=== PATIENT | female | born 2000 | race Two or more races ===

== ENCOUNTER 2021-07-08 20:34 | Emergency (ER) | payer MEDICAID, SELFPAY ==
--- NOTE | ~2021-07-08 | US_ITS ---
EXAMINATION: US OB LESS THAN 14 WEEKS FETUS ADD GESTATION US PELVIC OVARIAN DOPPLER CLINICAL INFORMATION: Right-sided pelvic pain. Evaluate for an ovarian cyst, torsion, ectopic. Positive urine . COMPARISON: None TECHNIQUE: Transabdominal and transvaginal imaging was obtained. FINDINGS: The uterus is anteverted. No myometrial lesion. There is a gestational sac within the endometrium measuring 0.4 cm corresponding to a gestational age of 5 weeks 0 days and an MAURA of 03/10/2022. Unremarkable yolk sac. No pole identified. No subchorionic hemorrhage. The right ovary measures 4.2 x 2.3 x 2.5 cm. Possible right ovarian corpus luteum measuring 2.2 x 1.8 x 2.0 cm. The left ovary is sonographically unremarkable measuring 2.5 x 1.4 x 1.8 cm. Doppler detectable vascular flow seen within the right and left ovary. No pelvic free fluid. US/US OB <= 14 wk fetus add gest IMPRESSION: 1. Sonographically unremarkable intrauterine gestational sac corresponding to a gestational age of 5 weeks and 0 days and MAURA of 03/10/2022. No subchorionic hemorrhage. 2. Probable right ovarian corpus luteum measuring 2.2 cm. Doppler detectable vascular flow within the right and left ovary.
--- NOTE | ~2021-07-08 | US_ITS ---
EXAMINATION: US OB LESS THAN 14 WEEKS FETUS ADD GESTATION US PELVIC OVARIAN DOPPLER CLINICAL INFORMATION: Right-sided pelvic pain. Evaluate for an ovarian cyst, torsion, ectopic. Positive urine . COMPARISON: None TECHNIQUE: Transabdominal and transvaginal imaging was obtained. FINDINGS: The uterus is anteverted. No myometrial lesion. There is a gestational sac within the endometrium measuring 0.4 cm corresponding to a gestational age of 5 weeks 0 days and an MAURA of 03/10/2022. Unremarkable yolk sac. No pole identified. No subchorionic hemorrhage. The right ovary measures 4.2 x 2.3 x 2.5 cm. Possible right ovarian corpus luteum measuring 2.2 x 1.8 x 2.0 cm. The left ovary is sonographically unremarkable measuring 2.5 x 1.4 x 1.8 cm. Doppler detectable vascular flow seen within the right and left ovary. No pelvic free fluid. US/US pelvic ovarian doppler IMPRESSION: 1. Sonographically unremarkable intrauterine gestational sac corresponding to a gestational age of 5 weeks and 0 days and MAURA of 03/10/2022. No subchorionic hemorrhage. 2. Probable right ovarian corpus luteum measuring 2.2 cm. Doppler detectable vascular flow within the right and left ovary.
[2021-07-08 20:40] VITALS: BP 129/74; PULSE 89; RESP 17; TEMP 37; O2SAT 98; BMI 26.2
[2021-07-08 21:46] LABS: MANUAL DIFF FLAG NO
--- NOTE | 2021-07-08 21:48 | PC.NURSE ---
PT UP TO RESTROOM FOR URINE SAMPLE. PT ALERT, RESPIRATIONS EASY, N/L. SKIN W/D. PT TO U/S IN STRETCHER AT THIS TIME. PT IN NAD.
[2021-07-08 21:52] LABS: Basophils Absolute Auto 0.1 X10*3/uL (0.0-0.2); Basophils Percent Auto 0.5 % (0-2); Eosinophils Absolute Auto 0.4 X10*3/uL (0.0-0.4); Eosinophils Percent Auto 2.9 % (0-4); Hematocrit 35.6 % (37-47); Imm Gran Abs Auto 0.12 X10*3/uL (0.00-0.03); Imm Gran Pct Auto 0.9 % (0.0-0.4); Lymphocytes Absolute Auto 2.7 X10*3/uL (1.2-4.9); Lymphocytes Percent Auto 20.7 % (20-40); Mean Corpuscular HGB Conc 33.7 g/dl (31.0-35.0); Mean Corpuscular Hemoglobin 28.1 pg (27.0-33.0); Mean Corpuscular Volume 83.4 fL (80-98); Mean Platelet Volume 9.4 fL (9.4-12.3); Monocytes Percent Auto 7.4 % (2-11); Neutrophils Absolute Auto 8.8 X10*3/uL (2.0-8.3); Neutrophils Percent Auto 67.6 % (45-73); Platelet Count 333 X10*3/uL (160-400); Red Blood Count 4.27 X10*6/uL (4.20-5.50); Red Cell Distribution Width 13.2 % (11.0-16.0); White Blood Count 13.1 X10*3/uL (4.8-10.8)
[2021-07-08 21:55] LABS: Glucose Urine UA NEG (NEG); Leukocyte Esterase Urine NEG (NEG); Nitrite Urine NEG (NEG); Specific Gravity - Urine >= 1.030 (1.005-1.025); UACC Culture Trigger NO; Urine Blood TRACE (NEG); Urine Ketones NEG (NEG); Urine Protein NEG (NEG-TRACE)
[2021-07-08 21:58] LABS: Appearance Urine CLEAR; Color Urine YELLOW
[2021-07-08 22:00] LABS: UPreg QC Valid YES; Urine Pregnancy POSITIVE (NEGATIVE)
--- NOTE | 2021-07-08 22:08 | PC.NURSE ---
PT RETURNS TO ROOM ON STRETCHER.
[2021-07-08 22:09] LABS: Prothrombin Time 11.6 SEC (9.9-13.0)
[2021-07-08 22:12] LABS: Partial Thromboplastin Time 35.5 SEC (24.1-38.0)
[2021-07-08 22:15] LABS: WBC Urine 0-2 /HPF (0-4)
[2021-07-08 22:16] LABS: Bacteria Urine 1+ /LPF; Squamous Epithelial Cell Urine 1+ /LPF
[2021-07-08 22:17] LABS: Alanine Aminotransferase 13 U/L (0-31); Albumin Level 4.3 g/dL (3.5-5.0); Alkaline Phosphatase 77 U/L (39-117); Anion Gap 12 (12-20); Aspartate Amino Transferase 17 U/L (5-31); Bilirubin Total 0.4 mg/dL (0.0-1.0); Blood Urea Nitrogen 10 mg/dL (9-16); Calcium 8.9 mg/dL (8.4-10.2); Carbon Dioxide 22 mmol/L (22-29); Chloride 109 mmol/L (96-108); Creatinine Clr Calc Pharmacy 103.1; Estimated Glomerular Filt Rate > 60; Glucose Random 98 mg/dL (60-115); Sodium 139 mmol/L (135-145); Total Protein 7.1 g/dL (6.5-8.0)
[2021-07-08 22:54] VITALS: BP 118/58; PULSE 72; RESP 18; TEMP 36.9; O2SAT 97
[2021-07-08 23:02] LABS: HCG Quantitative 2068 mIU/mL
--- NOTE | 2021-07-08 23:53 | ED.PREGNANCY ---
HPI - General Chief complaint: Abdominal Pain Stated complaint: Vaginal bleeding/ ?6wks preg Time Seen by Provider: 07/08/21 20:56 Source: patient Mode of arrival: ambulatory Limitations: no limitations History of Present Illness HPI Narrative: 10-year-old female who reports she is currently about 5-6 weeks otherwise denies any past medical or surgical history she has confirmed by urine and states she had blood work through her primary care doctor, does not see an OBGYN yet. She presents today with complaint of pelvic cramping like abdominal pain and states has noted some spotting. She otherwise denies any abdominal pain, nausea, vomiting or diarrhea. Denies any dysuria, hematuria, vaginal discharge or rash. MD Complaint: abdominal pain and vaginal bleeding Onset (ago): day(s) Pain Consistency: intermittent Location: pelvis Severity: mild Quality: Aching Radiation: pelvis Relieving factors: none Exacerbating factors: none Associated symptoms: denies other symptoms Vaginal discharge: none Vaginal bleeding: none Patient : Yes OB History - Current : no complications care: none Related Data Allergies Allergy/AdvReac Type Severity Reaction Status Date / Time No Known Allergies Allergy Unverified 08/11/20 17:12 Latex Allergy Unknown Uncoded 11/22/17 00:00 Review of Systems Review of Systems: Constitutional: No Weight loss, No Fever, No Chills, No Night Sweats, No Fatigue, No Malaise ENT/Mouth: No Hearing loss, No Ear Pain, No Nasal Congestion, No Sinus Pain, No Hoarseness, No sore throat, No Rhinorrhea, No Swallowing Difficulty Eyes: No Eye Pain, No Swelling, No Redness, No Foreign Body, No Discharge, No Vision Changes Cardiovascular: No Chest Pain, No SOB, No Dyspnea on Exertion, No Orthopnea, No Edema, No Palpitations Respiratory: No Cough, No Sputum, No Wheezing, No Smoke Exposure, No Dyspnea Gastrointestinal: No Nausea, No Vomiting, No Diarrhea, No Constipation, No abdominal Pain, No Hematochezia, No Melena Genitourinary: As noted per HPI, No Dysuria, No Urinary Frequency, No Hematuria, No Urinary Incontinence, No Urgency, No Flank Pain, No Urinary Flow Changes, No Hesitancy Musculoskeletal: No joint pain, No Myalgias, No Joint Swelling Skin: No Skin Lesions, No rash Neuro: No Weakness, No Numbness, No Paresthesias, No Loss of Consciousness, No Dizziness, No Headache Psych: No Social Issues Heme/Lymph: No Bruising, No Bleeding,No Lymphadenopathy Endocrine: No Polyuria, No Polydipsia, No Temperature Intolerance [facility] Past Medical History Medical History Asthma Social History Social History Advance Directives: No Advance Directives Information Provided: Yes Patient : Yes Physical Exam Vital Signs: Vital Signs: Last Vital Signs Temp 98.5 F 07/08/21 22:54 Pulse 72 07/08/21 22:54 Resp 18 07/08/21 22:54 BP 118/58 L 07/08/21 22:54 Pulse Ox 97 07/08/21 22:54 Body Mass Index 26.2 Const: General: cooperative and healthy appearing; No acute distress or intoxicated appearing Nutritional Appearance: average body habitus Orientation/consciousness: patient oriented x3 HENMT: Head: Yes normal to inspection Ears: hearing grossly normal bilaterally Eyes: General: appearance normal, both eyes and all related structures Visual Prieto: normal visual prieto by confrontation Neck: Neck: Yes normal visual inspection, No positive Brudzinski's sign, No positive Kernig's sign and No tender Thyroid: Thyroid normal Chest: Chest palpation & inspection: normal inspection of the chest Resp: Effort & Inspection: normal respiratory effort Cardio: Jugular venous distension: no JVD Rate: regular rate Rhythm: regular rhythm Heart sounds: S1 normal heart sound present and S2 normal heart sound present GI: Inspection: Yes normal to inspection Percussion: Yes normal to percussion Auscultation: normal bowel sounds : General: Yes no CVA tenderness Back/Spine/Pelvis: Back: no CVA tenderness Skin: General skin exam: no rashes or lesions noted Neuro: General: patient oriented x3 Extrem: General: Yes normal to inspection Course Reevaluation(s) Reevaluation #1: Is not any further spotting or bleeding, hCG quant consistent Sonographically unremarkable intrauterine gestational sac corresponding to a gestational age of 5 weeks and 0 days and MAURA of 03/10/2022. No subchorionic hemorrhage. ?2. Probable right ovarian corpus luteum measuring 2.2 cm. Doppler detectable vascular flow within the right and left ovary.? She has been pain-free here. Blood type is B positive. Page placed to OBGYN to discuss case with him states she does not want a follow-up with OBGYN she would like to see or she can get an . [facility] MDM - OB/Uterine Contractions Lab Data Result diagrams: 07/08/21 21:40 07/08/21 21:40 Labs: Lab Results 07/08/21 07/08/21 07/08/21 Range/Units 21:40 21:40 21:40 WBC 13.1 H (4.8-10.8) X10*3/uL RBC 4.27 (4.20-5.50) X10*6/uL Hgb 12.0 (12.0-16.0) g/dl Hct 35.6 L (37-47) % MCV 83.4 (80-98) fL MCH 28.1 (27.0-33.0) pg MCHC 33.7 (31.0-35.0) g/dl RDW 13.2 (11.0-16.0) % Plt Count 333 (160-400) X10*3/uL MPV 9.4 (9.4-12.3) fL Immature Gran % (Auto) 0.9 H (0.0-0.4) % Neut % (Auto) 67.6 (45-73) % Lymph % (Auto) 20.7 (20-40) % [place] % (Auto) 7.4 (2-11) % Eos % (Auto) 2.9 (0-4) % Baso % (Auto) 0.5 (0-2) % Lymph # (Auto) 2.7 (1.2-4.9) X10*3/uL [place] # (Auto) 1.0 (0.1-1.2) X10*3/uL Eos # (Auto) 0.4 (0.0-0.4) X10*3/uL Baso # (Auto) 0.1 (0.0-0.2) X10*3/uL Abs Immat Gran (auto) 0.12 H (0.00-0.03) X10*3/uL Absolute Neuts (auto) 8.8 H (2.0-8.3) X10*3/uL Absolute Nucleated RBC 0.000 (0.0-0.012) X10*3/uL Nucleated RBC % (auto) 0.0 (0.0-0.2) /100WBC PT 11.6 (9.9-13.0) SEC INR 1.0 (0.9-1.1) APTT 35.5 (24.1-38.0) SEC Sodium 139 (135-145) mmol/L Potassium 4.0 (3.3-5.1) mmol/L Chloride 109 H (96-108) mmol/L Carbon Dioxide 22 (22-29) mmol/L Anion Gap 12 (12-20) BUN 10 (9-16) mg/dL Creatinine 0.68 (0.5-1.4) mg/dL Estim Creat Clear Calc 103.1 Estimated GFR > 60 Random Glucose 98 (60-115) mg/dL Calcium 8.9 (8.4-10.2) mg/dL Total Bilirubin 0.4 (0.0-1.0) mg/dL AST 17 (5-31) U/L ALT 13 (0-31) U/L Alkaline Phosphatase 77 (39-117) U/L Total Protein 7.1 (6.5-8.0) g/dL Albumin 4.3 (3.5-5.0) g/dL Beta HCG, Quant 2068 mIU/mL Urine Color Urine Appearance Urine pH (5.0-8.0) Ur Specific [place] (1.005-1.025) Urine Protein (NEG-TRACE) MG/DL Urine Glucose (UA) (NEG) MG/DL Urine Ketones (NEG) MG/DL Urine Blood (NEG) Urine Nitrite (NEG) Ur Leukocyte Esterase (NEG) Urine RBC (0) /HPF Urine WBC (0-4) /HPF Ur Squamous Epith Cells /LPF Urine Bacteria /LPF Urine Test (NEGATIVE) Blood Type 07/08/21 07/08/21 07/08/21 Range/Units 21:40 21:40 21:40 WBC (4.8-10.8) X10*3/uL RBC (4.20-5.50) X10*6/uL Hgb (12.0-16.0) g/dl Hct (37-47) % MCV (80-98) fL MCH (27.0-33.0) pg MCHC (31.0-35.0) g/dl RDW (11.0-16.0) % Plt Count (160-400) X10*3/uL MPV (9.4-12.3) fL Immature Gran % (Auto) (0.0-0.4) % Neut % (Auto) (45-73) % Lymph % (Auto) (20-40) % [place] % (Auto) (2-11) % Eos % (Auto) (0-4) % Baso % (Auto) (0-2) % Lymph # (Auto) (1.2-4.9) X10*3/uL [place] # (Auto) (0.1-1.2) X10*3/uL Eos # (Auto) (0.0-0.4) X10*3/uL Baso # (Auto) (0.0-0.2) X10*3/uL Abs Immat Gran (auto) (0.00-0.03) X10*3/uL Absolute Neuts (auto) (2.0-8.3) X10*3/uL Absolute Nucleated RBC (0.0-0.012) X10*3/uL Nucleated RBC % (auto) (0.0-0.2) /100WBC PT (9.9-13.0) SEC INR (0.9-1.1) APTT (24.1-38.0) SEC Sodium (135-145) mmol/L Potassium (3.3-5.1) mmol/L Chloride (96-108) mmol/L Carbon Dioxide (22-29) mmol/L Anion Gap (12-20) BUN (9-16) mg/dL Creatinine (0.5-1.4) mg/dL Estim Creat Clear Calc Estimated GFR Random Glucose (60-115) mg/dL Calcium (8.4-10.2) mg/dL Total Bilirubin (0.0-1.0) mg/dL AST (5-31) U/L ALT (0-31) U/L Alkaline Phosphatase (39-117) U/L Total Protein (6.5-8.0) g/dL Albumin (3.5-5.0) g/dL Beta HCG, Quant mIU/mL Urine Color YELLOW Urine Appearance CLEAR Urine pH 6.0 (5.0-8.0) Ur Specific [place] >= 1.030 H (1.005-1.025) Urine Protein NEG (NEG-TRACE) MG/DL Urine Glucose (UA) NEG (NEG) MG/DL Urine Ketones NEG (NEG) MG/DL Urine Blood TRACE (NEG) Urine Nitrite NEG (NEG) Ur Leukocyte Esterase NEG (NEG) Urine RBC 1-4 (0) /HPF Urine WBC 0-2 (0-4) /HPF Ur Squamous Epith Cells 1+ /LPF Urine Bacteria 1+ /LPF Urine Test POSITIVE H (NEGATIVE) Blood Type B Positive Discharge Plan Discharge Clinical Impression: Miscarriage, threatened, early Patient Disposition: Home, Self-Care Instructions: Threatened Miscarriage (ED) Additional Instructions: [facility] in [address], [place] [address] Opens 7:40AM Mon Referrals: ED Physician,Generic [Emergency Provider] - 2 days ([facility] )
== END 2021-07-09 00:29 | disposition home or self-care (01) ==
PROVIDERS: Nurse Practitioner Primary Care; Emergency Provider Emergency Medicine
DX: O20.0 Threatened abortion (principal); N93.9 Abnormal uterine and vaginal bleeding, unspecified; R10.9 Unspecified abdominal pain; Z3A.01 Less than 8 weeks gestation of pregnancy
CPT/HCPCS: 36415; 76801; 76802; 80053; 81001; 81025; 84702; 85025; 85610; 85730; 86900; 86901; 93975; 99283; 99284

== ENCOUNTER 2021-07-21 10:44 | Emergency (ER) | payer MEDICAID, SELFPAY ==
--- NOTE | ~2021-07-21 | US_ITS ---
EXAMINATION: US OBSTETRICAL ULTRASOUND CLINICAL INFORMATION: Early , vaginal bleeding, spotting. Pelvic and abdominal pain. COMPARISON: Obstetrical ultrasound 07/08/2021. LMP: 05/29/2021. Gestational age by maternal dates is 7 weeks 4 days. Estimated date of delivery by maternal dates is 03/05/2022. TECHNIQUE: Ultrasound of the maternal pelvis is performed using transabdominal and transvaginal transducers. Transvaginal imaging is performed due to inadequate visualization transabdominally. M-mode Doppler is also performed. FINDINGS: There is a single intrauterine gestational sac with visible yolk sac, embryo/fetus, and cardiac activity. The endometrium appears mildly thickened on some of the images but the AP cavitary dimension is only 1.5 cm on transvaginal imaging. No endometrial cystic changes. No abnormal color flow. There is no visible subchorionic hematoma or hemorrhage. HR: 117 beats per minute. CRL (crown rump length): 0.44 cm (6 weeks 1 day +/- 4 days). MAURA (estimated date of delivery): 03/15/2022 +/- 4 days. MATERNAL ADNEXA: The right maternal ovary measures 3.9 x 1.7 x 2.5 cm. There is a nearly isoechoic corpus luteum suggested within the right ovary 1.8 cm diameter, similar to previous exam. The left maternal ovary measures 2.6 x 1.7 x 1.9 cm. Normal color flow both adnexa. No torsion. No maternal adnexal mass. No maternal pelvic ascites. US/US OB pelvic and transvaginal IMPRESSION: 1. Single intrauterine gestation with cardiac activity 117 bpm. 2. Ultrasound gestational age based on crown-rump length: 6 weeks 1 day +/- 4 days. 3. Estimated date of delivery: 03/15/2022 +/- 4 days. 4. No visible subchorionic hemorrhage or hematoma. No maternal pelvic ascites.
[2021-07-21 11:03] VITALS: BP 103/53; PULSE 71; RESP 18; TEMP 36.8; O2SAT 97; BMI 28.3
[2021-07-21 11:36] VITALS: BP 111/53; TEMP 37; O2SAT 97
[2021-07-21 11:53] LABS: Urine Pregnancy POSITIVE (NEGATIVE)
[2021-07-21 11:54] LABS: UPreg QC Valid YES
--- NOTE | 2021-07-21 12:13 | ED.PREGNANCY ---
HPI - General Chief complaint: Vaginal Bleeding Stated complaint: vaginal bleeding 8 weeks Time Seen by Provider: 07/21/21 11:41 Source: patient Mode of arrival: ambulatory History of Present Illness HPI Narrative: 20-year-old female at about 7 weeks gestation presenting to the ED complaining of vaginal spotting/clots x2 days with lower abdominal/pelvic pain. Also reports low back pain, generalized fatigue and lightheadedness Denies fever, chills, nausea/vomiting, dysuria, vaginal discharge Patient denies any prior care. Of no was seen and treated in our ED on 07/08 for similar symptoms had ultrasound that showed MAURA of 03/10/2022 MD Complaint: vaginal bleeding Related Data Allergies Allergy/AdvReac Type Severity Reaction Status Date / Time Latex Allergy Unknown Hives Uncoded 07/21/21 11:02 Review of Systems Review of Systems: Constitutional: No Fever, No Chills, No Fatigue, No Malaise ENT/Mouth: No Hearing loss, No Nasal Congestion, No sore throat Eyes: No Eye Pain, No Discharge Cardiovascular: No Chest Pain, No SOB Respiratory: No Cough, No Dyspnea Gastrointestinal: No Nausea, No Vomiting, No Diarrhea, No Constipation, + Abdominal pain Genitourinary: + irregular bleeding, No Dysuria, No Hematuria Musculoskeletal: No joint pain, No Myalgias Skin: No Skin Lesions, No rash Neuro: No Weakness, No Numbness, No Paresthesias, +lightheadedness Yes all other systems are reviewed and are negative PMFSH Past Medical History Attestation statement: The following information was validated with the patient. Medical History Asthma Social History Social History Alcohol intake: former Patient Tobacco Use Status: Never used Tobacco Use of substances other than those prescribed or required for medical reasons: No Advance Directives: No Advance Directives Information Provided: No Patient : Yes Physical Exam Vital Signs: Vital Signs: Last Vital Signs Temp 98.6 F 07/21/21 11:36 Pulse 71 07/21/21 11:03 Resp 18 07/21/21 13:40 BP 111/53 L 07/21/21 11:36 Pulse Ox 97 07/21/21 11:36 Body Mass Index 28.3 Const: General: cooperative and healthy appearing Orientation/consciousness: patient oriented x3 Limitations: no limitations HENMT: Head: Yes normal to inspection Ears: hearing grossly normal bilaterally General nose exam: Normal external nose present Face and sinus: Yes normal facial exam Eyes: General: appearance normal, both eyes and all related structures EOM: EOMs intact bilaterally Neck: Neck: Yes normal visual inspection Resp: Effort & Inspection: normal respiratory effort Auscultation: clear to auscultation bilaterally, no rales and no wheezes Cardio: Rate: regular rate Heart sounds: S1 normal heart sound present and S2 normal heart sound present GI: Inspection: Yes normal to inspection Palpation (GI): Soft to palpation, Tenderness to palpation present (GI) (Lower abdominal/suprapubic tenderness), no guarding and not rigid : General: Yes no CVA tenderness Speculum Exam - Vagina: vaginal bleeding Speculum Exam - Cervix: Cervical os closed Bimanual exam- vagina & uterus: no cervical motion tenderness Bimanual Exam- Adnexa, other: tender bilaterally OB/external & speculum: Active bleeding present and vaginal bleeding; No no herpetic lesions and vaginal discharge Back/Spine/Pelvis: Back: no CVA tenderness Skin: Rashes: no rashes Wounds: no wounds Neuro: General: patient oriented x3 Gait exam (Neuro): Normal gait present Extrem: General: Yes normal to inspection Course Course Course Narrative: -no leukocytosis, H&H is stable, labs otherwise unremarkable -beta quad 3329 US OB pelvic and transvaginal IMPRESSION: 1. Single intrauterine gestation with cardiac activity 117 bpm. 2. Ultrasound gestational age based on crown-rump length:? 6 weeks 1 day +/- 4 days. 3. Estimated date of delivery:? 03/15/2022 +/- 4 days. 4. No visible subchorionic hemorrhage or hematoma. No maternal pelvic ascites. -UA with 2+ blood, not infected. Results discussed with patient including worrisome signs and symptoms and strict return precautions, discussed with patient likely threatened /continues versus normal , that she needs repeat labs in 48 hours, she verbalized understanding feel safe for discharge home MDM - OB/Uterine Contractions MDM Narrative Medical decision making narrative: 20-year-old female at about 7 weeks gestation presenting to the ED complaining of vaginal spotting/clots x2 days with lower abdominal/pelvic pain. Also reports low back pain, generalized fatigue and lightheadedness. On exam VSS, NAD/nontoxic appearing, abdomen soft with lower/suprapubic tenderness. On pelvic mild bilateral adnexal tenderness. Bleeding via surgical os cleared with Q-tip, no active hemorrhage. Pelvic not consistent with PID. Concern for threatened /spontaneous or miscarriage vs normal . Rule out anemia Plan: Labs, UA, pelvic ultrasound, STI testing, reassess Medical Records Attestation: I reviewed the patient's medical records. Lab Data Attestation: I reviewed the patient's lab results. Result diagrams: 07/21/21 12:16 07/21/21 12:16 Labs: Lab Results 07/21/21 07/21/21 07/21/21 Range/Units 11:43 11:43 12:16 WBC 8.1 (4.8-10.8) X10*3/uL RBC 4.47 (4.20-5.50) X10*6/uL Hgb 12.5 (12.0-16.0) g/dl Hct 37.5 (37-47) % MCV 83.9 (80-98) fL MCH 28.0 (27.0-33.0) pg MCHC 33.3 (31.0-35.0) g/dl RDW 12.7 (11.0-16.0) % Plt Count 280 (160-400) X10*3/uL MPV 9.3 L (9.4-12.3) fL Immature Gran % (Auto) 0.7 H (0.0-0.4) % Neut % (Auto) 68.4 (45-73) % Lymph % (Auto) 19.3 L (20-40) % [place] % (Auto) 6.5 (2-11) % Eos % (Auto) 4.5 H (0-4) % Baso % (Auto) 0.6 (0-2) % Lymph # (Auto) 1.6 (1.2-4.9) X10*3/uL [place] # (Auto) 0.5 (0.1-1.2) X10*3/uL Eos # (Auto) 0.4 (0.0-0.4) X10*3/uL Baso # (Auto) 0.1 (0.0-0.2) X10*3/uL Abs Immat Gran (auto) 0.06 H (0.00-0.03) X10*3/uL Absolute Neuts (auto) 5.6 (2.0-8.3) X10*3/uL Absolute Nucleated RBC 0.000 (0.0-0.012) X10*3/uL Nucleated RBC % (auto) 0.0 (0.0-0.2) /100WBC PT (9.9-13.0) SEC INR (0.9-1.1) APTT (24.1-38.0) SEC Sodium (135-145) mmol/L Potassium (3.3-5.1) mmol/L Chloride (96-108) mmol/L Carbon Dioxide (22-29) mmol/L Anion Gap (12-20) BUN (9-16) mg/dL Creatinine (0.5-1.4) mg/dL Estim Creat Clear Calc Estimated GFR Random Glucose (60-115) mg/dL Calcium (8.4-10.2) mg/dL Magnesium (1.6-2.6) mg/dL Total Bilirubin (0.0-1.0) mg/dL Direct Bilirubin (0.0-0.5) mg/dL AST (5-31) U/L ALT (0-31) U/L Alkaline Phosphatase (39-117) U/L Total Protein (6.5-8.0) g/dL Albumin (3.5-5.0) g/dL Lipase (8-78) U/L Beta HCG, Quant mIU/mL Urine Color YELLOW Urine Appearance CLEAR Urine pH 6.0 (5.0-8.0) Ur Specific [place] 1.025 (1.005-1.025) Urine Protein NEG (NEG-TRACE) MG/DL Urine Glucose (UA) NEG (NEG) MG/DL Urine Ketones NEG (NEG) MG/DL Urine Blood 2+ H (NEG) Urine Nitrite NEG (NEG) Ur Leukocyte Esterase NEG (NEG) Urine RBC 0-2 (0) /HPF Urine WBC 1-4 (0-4) /HPF Ur Squamous Epith Cells 1+ /LPF Urine Bacteria 1+ /LPF Urine Mucus 1+ /LPF Urine Test POSITIVE H (NEGATIVE) 07/21/21 07/21/21 07/21/21 Range/Units 12:16 12:16 12:16 WBC (4.8-10.8) X10*3/uL RBC (4.20-5.50) X10*6/uL Hgb (12.0-16.0) g/dl Hct (37-47) % MCV (80-98) fL MCH (27.0-33.0) pg MCHC (31.0-35.0) g/dl RDW (11.0-16.0) % Plt Count (160-400) X10*3/uL MPV (9.4-12.3) fL Immature Gran % (Auto) (0.0-0.4) % Neut % (Auto) (45-73) % Lymph % (Auto) (20-40) % [place] % (Auto) (2-11) % Eos % (Auto) (0-4) % Baso % (Auto) (0-2) % Lymph # (Auto) (1.2-4.9) X10*3/uL [place] # (Auto) (0.1-1.2) X10*3/uL Eos # (Auto) (0.0-0.4) X10*3/uL Baso # (Auto) (0.0-0.2) X10*3/uL Abs Immat Gran (auto) (0.00-0.03) X10*3/uL Absolute Neuts (auto) (2.0-8.3) X10*3/uL Absolute Nucleated RBC (0.0-0.012) X10*3/uL Nucleated RBC % (auto) (0.0-0.2) /100WBC PT 12.9 (9.9-13.0) SEC INR 1.1 (0.9-1.1) APTT 36.2 (24.1-38.0) SEC Sodium 138 (135-145) mmol/L Potassium 4.4 (3.3-5.1) mmol/L Chloride 108 (96-108) mmol/L Carbon Dioxide 25 (22-29) mmol/L Anion Gap 9 L (12-20) BUN 12 (9-16) mg/dL Creatinine 0.68 (0.5-1.4) mg/dL Estim Creat Clear Calc 106.8 Estimated GFR > 60 Random Glucose 92 (60-115) mg/dL Calcium 9.2 (8.4-10.2) mg/dL Magnesium 2.1 (1.6-2.6) mg/dL Total Bilirubin 0.3 (0.0-1.0) mg/dL Direct Bilirubin < 0.2 (0.0-0.5) mg/dL AST 14 (5-31) U/L ALT 10 (0-31) U/L Alkaline Phosphatase 82 (39-117) U/L Total Protein 7.0 (6.5-8.0) g/dL Albumin 4.2 (3.5-5.0) g/dL Lipase 30 (8-78) U/L Beta HCG, Quant 3329 mIU/mL Urine Color Urine Appearance Urine pH (5.0-8.0) Ur Specific [place] (1.005-1.025) Urine Protein (NEG-TRACE) MG/DL Urine Glucose (UA) (NEG) MG/DL Urine Ketones (NEG) MG/DL Urine Blood (NEG) Urine Nitrite (NEG) Ur Leukocyte Esterase (NEG) Urine RBC (0) /HPF Urine WBC (0-4) /HPF Ur Squamous Epith Cells /LPF Urine Bacteria /LPF Urine Mucus /LPF Urine Test (NEGATIVE) Discharge Plan Discharge Clinical Impression: Threatened Patient Disposition: Home, Self-Care Instructions: Threatened Miscarriage (ED) Additional Instructions: Your ultrasound shows a live intrauterine at about 6 weeks gestation, however due to your vaginal bleeding and abdominal pain this could be an early miscarriage It is very important that he have repeat blood work in 48 hours If her symptoms persist or worsen, your vaginal bleeding worsens, pain becomes unbearable return to the ED immediately Called OBGYN for follow-up today Referrals: Josiah Syed MD [Physician] - 2 days
[2021-07-21 12:19] LABS: MANUAL DIFF FLAG NO
[2021-07-21] MEDS: 0.9 % Sodium Chloride 1,000 ML 999 ML IVCONT (12:19)
[2021-07-21 12:21] LABS: Basophils Absolute Auto 0.1 X10*3/uL (0.0-0.2); Basophils Percent Auto 0.6 % (0-2); Eosinophils Absolute Auto 0.4 X10*3/uL (0.0-0.4); Eosinophils Percent Auto 4.5 % (0-4); Hematocrit 37.5 % (37-47); Hemoglobin 12.5 g/dl (12.0-16.0); Imm Gran Abs Auto 0.06 X10*3/uL (0.00-0.03); Imm Gran Pct Auto 0.7 % (0.0-0.4); Lymphocytes Absolute Auto 1.6 X10*3/uL (1.2-4.9); Lymphocytes Percent Auto 19.3 % (20-40); Mean Corpuscular HGB Conc 33.3 g/dl (31.0-35.0); Mean Corpuscular Volume 83.9 fL (80-98); Mean Platelet Volume 9.3 fL (9.4-12.3); Monocytes Absolute Auto 0.5 X10*3/uL (0.1-1.2); Monocytes Percent Auto 6.5 % (2-11); Neutrophils Absolute Auto 5.6 X10*3/uL (2.0-8.3); Neutrophils Percent Auto 68.4 % (45-73); Platelet Count 280 X10*3/uL (160-400); Red Blood Count 4.47 X10*6/uL (4.20-5.50); Red Cell Distribution Width 12.7 % (11.0-16.0); White Blood Count 8.1 X10*3/uL (4.8-10.8)
[2021-07-21 12:31] LABS: INTERNATIONAL NORM RATIO 1.1 (0.9-1.1); Prothrombin Time 12.9 SEC (9.9-13.0)
[2021-07-21 12:32] LABS: Appearance Urine CLEAR; Color Urine YELLOW
[2021-07-21 12:33] LABS: Glucose Urine UA NEG (NEG); Leukocyte Esterase Urine NEG (NEG); Nitrite Urine NEG (NEG); Specific Gravity - Urine 1.025 (1.005-1.025); UACC Culture Trigger NO; Urine Blood 2+ (NEG); Urine Ketones NEG (NEG); Urine Protein NEG (NEG-TRACE)
[2021-07-21 12:34] LABS: RBC Urine 0-2 /HPF (0); Squamous Epithelial Cell Urine 1+ /LPF
[2021-07-21 12:34] LABS: Partial Thromboplastin Time 36.2 SEC (24.1-38.0)
[2021-07-21 12:35] LABS: Bacteria Urine 1+ /LPF; Mucus Urine 1+ /LPF
[2021-07-21 12:55] LABS: HCG Quantitative 3329 mIU/mL
[2021-07-21 12:56] LABS: Alanine Aminotransferase 10 U/L (0-31); Albumin Level 4.2 g/dL (3.5-5.0); Alkaline Phosphatase 82 U/L (39-117); Anion Gap 9 (12-20); Aspartate Amino Transferase 14 U/L (5-31); Bilirubin Direct < 0.2 mg/dL (0.0-0.5); Bilirubin Total 0.3 mg/dL (0.0-1.0); Blood Urea Nitrogen 12 mg/dL (9-16); Calcium 9.2 mg/dL (8.4-10.2); Carbon Dioxide 25 mmol/L (22-29); Chloride 108 mmol/L (96-108); Creatinine Clr Calc Pharmacy 106.8; Estimated Glomerular Filt Rate > 60; Glucose Random 92 mg/dL (60-115); Lipase 30 U/L (8-78); Magnesium 2.1 mg/dL (1.6-2.6); Potassium 4.4 mmol/L (3.3-5.1); Sodium 138 mmol/L (135-145)
[2021-07-21 13:40] VITALS: RESP 18
== END 2021-07-21 14:52 | disposition home or self-care (01) ==
PROVIDERS: Physician Assistant; Emergency Provider Emergency Medicine
DX: O20.0 Threatened abortion (principal); Z3A.01 Less than 8 weeks gestation of pregnancy
CPT/HCPCS: 36415; 76801; 76817; 80048; 80076; 81001; 81003; 81025; 83690; 83735; 84702; 85025; 85610; 85730; 96360; 99284

== ENCOUNTER 2021-07-24 20:51 | Emergency (ER) | payer MEDICAID, SELFPAY ==
--- NOTE | ~2021-07-24 | US_ITS ---
EXAMINATION: ULTRASOUND PELVIC, COMPLETE CLINICAL INFORMATION: . Passing clots for one day. Cramping. COMPARISON: Obstetrical ultrasound 07/08/2021 TECHNIQUE: Transvaginal: Used to better visualize pelvic structures Transabdominal: Not adequate for visualization Spectral Doppler and color Doppler exam was utilized. LMP: 05/29/2021. Gestational age by prior ultrasound exam 07/21/2021 6 weeks 4 days. MAURA 03/15/2020 FINDINGS: UTERUS: There is no intrauterine gestational sac. No evidence of retained products of conception. No fluid collection the endometrial cavity. Endometrial thickness 1.6 cm. Nabothian cysts at cervix. Uterus measures 10 x 4.9 x 5.3 cm. ADNEXA: Ovarian vascularity:Doppler demonstrates both arterial and venous vascular flow in the right and left ovary. No evidence of ovarian torsion. Right Ovary: Anechoic cyst in the right ovary measuring 2.3 cm. The right ovary measures 3.8 x 2.4 x 2.6 cm. Left Ovary: Unremarkable. 2.7 x 1.5 x 2.1 cm. Cul-de-sac: Small amount of fluid in the cul-de-sac US/US OB <= 14 weeks fetus IMPRESSION: No intrauterine gestation now present. Findings consistent with spontaneous . No evidence of retained products of conception.
--- NOTE | ~2021-07-24 | US_ITS ---
EXAMINATION: ULTRASOUND PELVIC, COMPLETE CLINICAL INFORMATION: . Passing clots for one day. Cramping. COMPARISON: Obstetrical ultrasound 07/08/2021 TECHNIQUE: Transvaginal: Used to better visualize pelvic structures Transabdominal: Not adequate for visualization Spectral Doppler and color Doppler exam was utilized. LMP: 05/29/2021. Gestational age by prior ultrasound exam 07/21/2021 6 weeks 4 days. MAURA 03/15/2020 FINDINGS: UTERUS: There is no intrauterine gestational sac. No evidence of retained products of conception. No fluid collection the endometrial cavity. Endometrial thickness 1.6 cm. Nabothian cysts at cervix. Uterus measures 10 x 4.9 x 5.3 cm. ADNEXA: Ovarian vascularity:Doppler demonstrates both arterial and venous vascular flow in the right and left ovary. No evidence of ovarian torsion. Right Ovary: Anechoic cyst in the right ovary measuring 2.3 cm. The right ovary measures 3.8 x 2.4 x 2.6 cm. Left Ovary: Unremarkable. 2.7 x 1.5 x 2.1 cm. Cul-de-sac: Small amount of fluid in the cul-de-sac US/US OB transvaginal IMPRESSION: No intrauterine gestation now present. Findings consistent with spontaneous . No evidence of retained products of conception.
[2021-07-24 21:44] VITALS: BP 137/69; PULSE 78; RESP 15; TEMP 37; O2SAT 98; BMI 28.3
--- NOTE | 2021-07-24 22:20 | ED.FEMALEGU ---
HPI - Female Genitourinary General Chief complaint: Vaginal Bleeding Stated complaint: Vaginal bleeding/8 weeks Time Seen by Provider: 07/24/21 22:07 Source: patient Mode of arrival: ambulatory Limitations: no limitations History of Present Illness HPI Narrative: Patient about 7 weeks been bleeding since 07/21 was seen here on that day ultrasound was done showed IUP of 6 weeks +/-4 days. Initially when she came she was spotting which got heavier and today just prior to arrival patient passed a big blood clot with increased cramping Related Data Previous Rx's Medication Instructions Recorded ibuprofen 600 mg tablet 600 mg PO Q6H PRN #20 tab 07/25/21 Allergies Allergy/AdvReac Type Severity Reaction Status Date / Time Latex Allergy Unknown Hives Uncoded 07/21/21 11:02 Review of Systems Review of Systems: Yes all other systems are reviewed and are negative [facility] Past Medical History Medical History Asthma Social History Social History Alcohol intake: former Patient Tobacco Use Status: Never used Tobacco Advance Directives: No Advance Directives Information Provided: No Patient : Yes Physical Exam Vital Signs: Vital Signs: Last Vital Signs Temp 98.6 F 07/24/21 22:44 Pulse 70 07/24/21 22:44 Resp 12 07/24/21 22:44 BP 106/61 07/24/21 22:44 Pulse Ox 98 07/24/21 22:44 Body Mass Index 28.3 Appearance: Alert. Oriented X3. No acute distress. ENT: Pharynx normal. Oral Mucosa moist Neck: Normal inspection. Neck supple. CVS: Normal heart rate and rhythm. Pulses normal. Respiratory: No respiratory distress. Equal air entry bilateral, no wheezing/rales/rhonchi Abdomen: Soft , mild suprapubic tenderness Bowel sounds are present, no mass palpable, no CVA tenderness pelvis: Active bleeding slightly open os with bright red blood coming out Skin: Skin warm and dry. Normal skin color. Normal skin turgor. Extremities: No lower extremity edema. No calf tenderness Neuro: Oriented X 3. MDM - Female Genitourinary MDM Narrative Medical decision making narrative: Patient ultrasound negative for any gestation sac shows no retained products of conception. Patient blood type B positive bleeding has decreased now will discharge patient home Lab Data Attestation: I reviewed the patient's lab results. Labs: Lab Results 07/24/21 Range/Units 22:43 Beta HCG, Quant 3007 mIU/mL Imaging Data US - abdomen: Radiologist's impression: [address] [id number] Ultrasound Report Signed Patient: Kelli Maxwell MR#: [id number] : 2000 Acct:[id number] Age/Sex: 20 / F ADM Date: 07/24/21 Loc: HO.ED Attending Dr: Ordering Physician: Jewel Sanders MD Date of Service: 07/25/21 Procedure(s): US OB transvaginal Accession Number(s): [id number] cc: Jewel Sanders MD~ EXAMINATION: ULTRASOUND PELVIC, COMPLETE CLINICAL INFORMATION: . Passing clots for one day. Cramping. COMPARISON: Obstetrical ultrasound 07/08/2021 TECHNIQUE: Transvaginal: Used to better visualize pelvic structures Transabdominal: Not adequate for visualization Spectral Doppler and color Doppler exam was utilized. LMP: 05/29/2021. Gestational age by prior ultrasound exam 07/21/2021 6 weeks 4 days. MAURA 03/15/2020 FINDINGS: UTERUS: There is no intrauterine gestational sac. No evidence of retained products of conception. No fluid collection the endometrial cavity. Endometrial thickness 1.6 cm. Nabothian cysts at cervix. Uterus measures 10 x 4.9 x 5.3 cm. ADNEXA: Ovarian vascularity:Doppler demonstrates both arterial and venous vascular flow in the right and left ovary. No evidence of ovarian torsion. Right Ovary: Anechoic cyst in the right ovary measuring 2.3 cm. The right ovary measures 3.8 x 2.4 x 2.6 cm. Left Ovary: Unremarkable. 2.7 x 1.5 x 2.1 cm. Cul-de-sac: Small amount of fluid in the cul-de-sac US/US OB transvaginal IMPRESSION: No intrauterine gestation now present. Findings consistent with spontaneous . No evidence of retained products of conception. Dictated By: VICTORINO DEL ROSARIO MD Signed By: <Electronically signed by VICTORINO DEL ROSARIO MD in OV> 07/25/211 DD/ 0001 TD/TT:? Outsole Caser: DAVID Discharge Plan Discharge Clinical Impression: Complete miscarriage Patient Disposition: Home, Self-Care Instructions: Miscarriage (ED) Additional Instructions: Follow-up with OBG Ibuprofen for pain Prescriptions: New ibuprofen 600 mg tablet 600 mg PO Q6H PRN (Reason: pain) Qty: 20 RF: 0 Referrals: Josiah Syed MD [Physician] - 1 week Print Language: Italian
[2021-07-24 22:44] VITALS: BP 106/61; PULSE 70; RESP 12; TEMP 37; O2SAT 98
[2021-07-24 23:15] LABS: HCG Quantitative 3007 mIU/mL
[2021-07-25] MEDS: oxyCODONE HCl Immed Release 5 MG TABLET PO (01:23)
[2021-07-25] MEDS: Ibuprofen 600 MG TABLET PO (01:24)
== END 2021-07-25 01:33 | disposition home or self-care (01) ==
PROVIDERS: Emergency Provider Internal Medicine; PCP Nurse Practitioner Pediatrics
DX: O03.9 Complete or unspecified spontaneous abortion without complication (principal)
CPT/HCPCS: 36415; 76801; 76817; 84702; 99284

== ENCOUNTER 2022-01-16 23:47 | Emergency (ER) | payer MEDICAID, SELFPAY ==
[2022-01-17 00:18] VITALS: BP 133/71; PULSE 74; RESP 18; TEMP 37.1; O2SAT 99; BMI 31.1
[2022-01-17 00:45] LABS: MANUAL DIFF FLAG NO
[2022-01-17 00:46] LABS: Basophils Absolute Auto 0.1 X10*3/uL (0.0-0.2); Basophils Percent Auto 0.8 % (0-2); Eosinophils Absolute Auto 0.4 X10*3/uL (0.0-0.4); Eosinophils Percent Auto 3.8 % (0-4); Hematocrit 37.4 % (37.0-47.0); Hemoglobin 12.4 g/dl (12.0-16.0); Imm Gran Abs Auto 0.05 X10*3/uL (0.00-0.03); Imm Gran Pct Auto 0.5 % (0.0-0.4); Lymphocytes Absolute Auto 3.5 X10*3/uL (1.2-4.9); Lymphocytes Percent Auto 33.1 % (20-40); Mean Corpuscular HGB Conc 33.2 g/dl (31.0-35.0); Mean Corpuscular Hemoglobin 27.6 pg (27.0-33.0); Mean Corpuscular Volume 83.1 fL (80.0-98.0); Mean Platelet Volume 9.5 fL (9.4-12.3); Monocytes Absolute Auto 0.7 X10*3/uL (0.1-1.2); Neutrophils Absolute Auto 5.8 x10*3/uL (2.0-8.3); Neutrophils Percent Auto 54.8 % (45-73); Platelet Count 339 X10*3/uL (160-400); White Blood Count 10.5 X10*3/uL (4.8-10.8)
[2022-01-17 00:47] LABS: Appearance Urine CLEAR; Color Urine YELLOW; Glucose Urine UA NEG (NEG); Leukocyte Esterase Urine NEG (NEG); Nitrite Urine NEG (NEG); PH 7.5 (5.0-8.0); Urine Blood NEG (NEG); Urine Ketones NEG (NEG); Urine Protein NEG (NEG-TRACE)
[2022-01-17 00:53] LABS: UPreg QC Valid YES; Urine Pregnancy NEGATIVE (NEGATIVE)
[2022-01-17 01:04] LABS: Alanine Aminotransferase 10 U/L (0-31); Albumin Level 4.2 g/dL (3.5-5.0); Alkaline Phosphatase 99 U/L (39-117); Anion Gap 13 (12-20); Aspartate Amino Transferase 16 U/L (5-31); Bilirubin Total 0.2 mg/dL (0.0-1.0); Blood Urea Nitrogen 10 mg/dL (9-16); Calcium 9.4 mg/dL (8.4-10.2); Carbon Dioxide 22 mmol/L (22-29); Chloride 108 mmol/L (96-108); Creatinine Clr Calc Pharmacy 102.2; Estimated Glomerular Filt Rate > 60; Glucose Random 79 mg/dL (60-115); Potassium 4.8 mmol/L (3.3-5.1); Sodium 138 mmol/L (135-145); Total Protein 7.6 g/dL (6.5-8.0)
--- NOTE | 2022-01-17 03:21 | ED_ITS ---
HPI - Female Genitourinary General Chief complaint: Urogenital-Female Stated complaint: vaginal bleeding? Time Seen by Provider: 01/17/22 03:21 Source: patient Mode of arrival: ambulatory History of Present Illness HPI Narrative: 21-year-old female who presents with lower abdominal cramps and states that she is 2 weeks late on her menstrual cycle but denies any fever, chills, nausea, vomiting, diarrhea, or abdominal pain. In addition, she denies any urinary pain/burning/frequency. Related Data Previous Rx's Medication Instructions Recorded ibuprofen 600 mg tablet 600 mg PO Q6H PRN #20 tab 07/25/21 Allergies Allergy/AdvReac Type Severity Reaction Status Date / Time Latex Allergy Unknown Hives Uncoded 07/21/21 11:02 Review of Systems Review of Systems: Pertinent positives and negatives as stated in HPI 10 point review of systems is otherwise negative. PMFSH Past Medical History Source: nursing notes reviewed Medical History Asthma Social History Social History Alcohol intake: former Patient Tobacco Use Status: Never used Tobacco Advance Directives: No Advance Directives Information Provided: No Patient : No Physical Exam Vital Signs: Vital Signs: Last Vital Signs Temp 98.7 F 01/17/22 00:18 Pulse 74 01/17/22 00:18 Resp 18 01/17/22 00:18 BP 133/71 01/17/22 00:18 Pulse Ox 99 01/17/22 00:18 BMI result Body Mass Index 31.1 VITAL SIGNS: Reviewed. GENERAL: Well developed, well nourished, in no acute distress. HEAD: Normocephalic/atraumatic EYES: PERRLA, EOMI OROPHARYNX: no oral lesions noted, posterior pharynx clear LUNGS: Normal breath sounds. No adventitious sounds or accessory muscle use. SpO2<99> CARDIOVASCULAR: Regular rate and rhythm without noted murmurs ABDOMEN: Soft, non-tender, non-distended with bowel sounds. NEUROLOGIC: Alert and oriented x 4. Course Course Course Narrative: 21-year-old female with history and clinical presentation consistent with menstrual cramps and on review of all laboratory results there is no evidence to suggest , UTI, or infection, anemia. Patient was provided with combination analgesics and discharged home in stable condition. MDM - Female Genitourinary Lab Data Result diagrams: 01/17/22 00:31 01/17/22 00:31 Labs: Lab Results 01/17/22 01/17/22 01/17/22 Range/Units 00:31 00:31 00:32 WBC 10.5 (4.8-10.8) X10*3/uL RBC 4.50 (4.20-5.50) X10*6/uL Hgb 12.4 (12.0-16.0) g/dl Hct 37.4 (37.0-47.0) % MCV 83.1 (80.0-98.0) fL MCH 27.6 (27.0-33.0) pg MCHC 33.2 (31.0-35.0) g/dl RDW 13.0 (11.0-16.0) % Plt Count 339 (160-400) X10*3/uL MPV 9.5 (9.4-12.3) fL Immature Gran % (Auto) 0.5 H (0.0-0.4) % Neut % (Auto) 54.8 (45-73) % Lymph % (Auto) 33.1 (20-40) % [place] % (Auto) 7.0 (2-11) % Eos % (Auto) 3.8 (0-4) % Baso % (Auto) 0.8 (0-2) % Lymph # (Auto) 3.5 (1.2-4.9) X10*3/uL [place] # (Auto) 0.7 (0.1-1.2) X10*3/uL Eos # (Auto) 0.4 (0.0-0.4) X10*3/uL Baso # (Auto) 0.1 (0.0-0.2) X10*3/uL Abs Immat Gran (auto) 0.05 H (0.00-0.03) X10*3/uL Absolute Neuts (auto) 5.8 (2.0-8.3) x10*3/uL Absolute Nucleated RBC 0.000 (0.0-0.012) X10*3/uL Nucleated RBC % (auto) 0.0 (0.0-0.2) /100WBC Sodium 138 (135-145) mmol/L Potassium 4.8 (3.3-5.1) mmol/L Chloride 108 (96-108) mmol/L Carbon Dioxide 22 (22-29) mmol/L Anion Gap 13 (12-20) BUN 10 (9-16) mg/dL Creatinine 0.74 (0.5-1.4) mg/dL Estim Creat Clear Calc 102.2 Estimated GFR > 60 Random Glucose 79 (60-115) mg/dL Calcium 9.4 (8.4-10.2) mg/dL Total Bilirubin 0.2 (0.0-1.0) mg/dL AST 16 (5-31) U/L ALT 10 (0-31) U/L Alkaline Phosphatase 99 D (39-117) U/L Total Protein 7.6 (6.5-8.0) g/dL Albumin 4.2 (3.5-5.0) g/dL Urine Color YELLOW Urine Appearance CLEAR Urine pH 7.5 (5.0-8.0) Ur Specific [place] 1.020 (1.005-1.025) Urine Protein NEG (NEG-TRACE) MG/DL Urine Glucose (UA) NEG (NEG) MG/DL Urine Ketones NEG (NEG) MG/DL Urine Blood NEG (NEG) Urine Nitrite NEG (NEG) Ur Leukocyte Esterase NEG (NEG) Urine Test (NEGATIVE) 01/17/22 Range/Units 00:32 WBC (4.8-10.8) X10*3/uL RBC (4.20-5.50) X10*6/uL Hgb (12.0-16.0) g/dl Hct (37.0-47.0) % MCV (80.0-98.0) fL MCH (27.0-33.0) pg MCHC (31.0-35.0) g/dl RDW (11.0-16.0) % Plt Count (160-400) X10*3/uL MPV (9.4-12.3) fL Immature Gran % (Auto) (0.0-0.4) % Neut % (Auto) (45-73) % Lymph % (Auto) (20-40) % [place] % (Auto) (2-11) % Eos % (Auto) (0-4) % Baso % (Auto) (0-2) % Lymph # (Auto) (1.2-4.9) X10*3/uL [place] # (Auto) (0.1-1.2) X10*3/uL Eos # (Auto) (0.0-0.4) X10*3/uL Baso # (Auto) (0.0-0.2) X10*3/uL Abs Immat Gran (auto) (0.00-0.03) X10*3/uL Absolute Neuts (auto) (2.0-8.3) x10*3/uL Absolute Nucleated RBC (0.0-0.012) X10*3/uL Nucleated RBC % (auto) (0.0-0.2) /100WBC Sodium (135-145) mmol/L Potassium (3.3-5.1) mmol/L Chloride (96-108) mmol/L Carbon Dioxide (22-29) mmol/L Anion Gap (12-20) BUN (9-16) mg/dL Creatinine (0.5-1.4) mg/dL Estim Creat Clear Calc Estimated GFR Random Glucose (60-115) mg/dL Calcium (8.4-10.2) mg/dL Total Bilirubin (0.0-1.0) mg/dL AST (5-31) U/L ALT (0-31) U/L Alkaline Phosphatase (39-117) U/L Total Protein (6.5-8.0) g/dL Albumin (3.5-5.0) g/dL Urine Color Urine Appearance Urine pH (5.0-8.0) Ur Specific [place] (1.005-1.025) Urine Protein (NEG-TRACE) MG/DL Urine Glucose (UA) (NEG) MG/DL Urine Ketones (NEG) MG/DL Urine Blood (NEG) Urine Nitrite (NEG) Ur Leukocyte Esterase (NEG) Urine Test NEGATIVE (NEGATIVE) Discharge Plan Discharge Clinical Impression: Menstrual cramps Patient Disposition: Home, Self-Care Instructions: Dysmenorrhea (ED) Additional Instructions: Recommend ibuprofen 400 mg, orally with milk or food, every 6 hours as needed for pain control. Tylenol 1000 mg, orally, every 6 hours as needed for pain control. Return to the ER for worsening symptoms. Prescriptions: No Action ibuprofen 600 mg tablet 600 mg PO Q6H PRN (Reason: pain) Qty: 20 0RF
[2022-01-17] MEDS: Ibuprofen 400 MG TABLET PO (03:27)
[2022-01-17] MEDS: Acetaminophen 325 MG TABLET 975 MG PO (03:27)
[2022-01-17 03:31] VITALS: BP 132/76; PULSE 78; RESP 18; O2SAT 98
== END 2022-01-17 03:33 | disposition home or self-care (01) ==
PROVIDERS: Emergency Provider Student in an Organized Health Care Education/Training Program
DX: N94.6 Dysmenorrhea, unspecified (principal)
CPT/HCPCS: 36415; 80053; 81003; 81025; 85025; 99283

== ENCOUNTER 2022-02-21 14:11 | Outpatient (REF) | payer MEDICAID, SELFPAY ==
[2022-02-22 06:57] LABS: CT PCR NOT DETECTED (Not Detect.); NG PCR NOT DETECTED (Not Detect.)
== END 2022-02-21 14:12 | disposition home or self-care (01) ==
LOC: HO.LAB 14:11
PROVIDERS: Visit Provider Obstetrics & Gynecology
DX: Z01.419 Encounter for gynecological examination (general) (routine) without abnormal findings (principal); R10.2 Pelvic and perineal pain; Z32.02 Encounter for pregnancy test, result negative
CPT/HCPCS: 81025; 87491; 87591; 88142; 99202

== ENCOUNTER 2022-03-22 19:57 | Emergency (ER) | payer MEDICAID, SELFPAY ==
--- NOTE | ~2022-03-22 | US_ITS ---
EXAMINATION: US OBSTETRICAL ULTRASOUND CLINICAL INFORMATION: Right adnexal tenderness. Right-sided tenderness 4 weeks. History of ovarian cyst. No history of surgery. HCG quantitative 03/22/2022 202. COMPARISON: Pelvic ultrasound 07/25/2021.. LMP: No LMP per patient. TECHNIQUE: Transabdominal and endovaginal grayscale and color Doppler ultrasonography. FINDINGS: The uterus measures 9.9 cm x 4.2 cm x 5.2 cm and is present in a retroflexed orientation. No endometrial cavity fluid collections are visualized. The endometrial echo complex measures 10 mm in width. No uterine fibroids are noted. The right ovary measures 3.8 cm x 2.2 cm x 3.5 cm. 2 closely approximated anechoic ovoid regions are present in association with the right ovary each measuring approximately 4 mm in maximum diameter. Color Doppler interrogation demonstrates no peripheral hyperemia. The left ovary measures 2.6 cm x 1.6 cm x 2.2 cm and is normal in appearance. Color Doppler interrogation demonstrates no gross hyperemia of the ovaries. A trace quantity of anechoic fluid is present dependently within the pelvic cul-de-sac. US/US OB <= 14 weeks fetus IMPRESSION: *No gestation is identified. As clinically indicated, consider maintenance of ectopic precautions. *No definitive abnormalities of the ovaries. Two subcentimeter anechoic cysts are noted in association with the right ovary and are most likely to represent physiologic cysts. Findings could represent early sonographic appearance of an ovarian ectopic . However, no peripheral hyperemia is associated with these findings to more specifically suggest ectopic and statistically these findings are most likely to represent physiologic ovarian cysts. This result was discussed with Dr. Александр MCDONALD by telephone at 03/23/2022 2:29 AM and it was ascertained that the content and urgency of the report was understood at the time of direct communication.
--- NOTE | ~2022-03-22 | US_ITS ---
EXAMINATION: US OBSTETRICAL ULTRASOUND CLINICAL INFORMATION: Right adnexal tenderness. Right-sided tenderness 4 weeks. History of ovarian cyst. No history of surgery. HCG quantitative 03/22/2022 202. COMPARISON: Pelvic ultrasound 07/25/2021.. LMP: No LMP per patient. TECHNIQUE: Transabdominal and endovaginal grayscale and color Doppler ultrasonography. FINDINGS: The uterus measures 9.9 cm x 4.2 cm x 5.2 cm and is present in a retroflexed orientation. No endometrial cavity fluid collections are visualized. The endometrial echo complex measures 10 mm in width. No uterine fibroids are noted. The right ovary measures 3.8 cm x 2.2 cm x 3.5 cm. 2 closely approximated anechoic ovoid regions are present in association with the right ovary each measuring approximately 4 mm in maximum diameter. Color Doppler interrogation demonstrates no peripheral hyperemia. The left ovary measures 2.6 cm x 1.6 cm x 2.2 cm and is normal in appearance. Color Doppler interrogation demonstrates no gross hyperemia of the ovaries. A trace quantity of anechoic fluid is present dependently within the pelvic cul-de-sac. US/US OB transvaginal IMPRESSION: *No gestation is identified. As clinically indicated, consider maintenance of ectopic precautions. *No definitive abnormalities of the ovaries. Two subcentimeter anechoic cysts are noted in association with the right ovary and are most likely to represent physiologic cysts. Findings could represent early sonographic appearance of an ovarian ectopic . However, no peripheral hyperemia is associated with these findings to more specifically suggest ectopic and statistically these findings are most likely to represent physiologic ovarian cysts. This result was discussed with Dr. Александр MCDONALD by telephone at 03/23/2022 2:29 AM and it was ascertained that the content and urgency of the report was understood at the time of direct communication.
[2022-03-22 20:45] VITALS: BP 126/55; PULSE 74; RESP 16; TEMP 37.2; O2SAT 100; BMI 30.2
[2022-03-22 21:15] LABS: MANUAL DIFF FLAG NO
[2022-03-22 21:18] LABS: Basophils Absolute Auto 0.1 X10*3/uL (0.0-0.2); Basophils Percent Auto 0.7 % (0-2); Eosinophils Absolute Auto 0.3 X10*3/uL (0.0-0.4); Eosinophils Percent Auto 2.7 % (0-4); Hematocrit 36.5 % (37.0-47.0); Hemoglobin 12.2 g/dl (12.0-16.0); Imm Gran Abs Auto 0.08 X10*3/uL (0.00-0.03); Imm Gran Pct Auto 0.7 % (0.0-0.4); Lymphocytes Absolute Auto 3.1 X10*3/uL (1.2-4.9); Lymphocytes Percent Auto 25.7 % (20-40); Mean Corpuscular HGB Conc 33.4 g/dl (31.0-35.0); Mean Corpuscular Hemoglobin 27.3 pg (27.0-33.0); Mean Corpuscular Volume 81.7 fL (80.0-98.0); Mean Platelet Volume 9.3 fL (9.4-12.3); Monocytes Absolute Auto 0.9 X10*3/uL (0.1-1.2); Monocytes Percent Auto 7.6 % (2-11); Neutrophils Absolute Auto 7.6 x10*3/uL (2.0-8.3); Neutrophils Percent Auto 62.6 % (45-73); Platelet Count 351 X10*3/uL (160-400); Red Blood Count 4.47 X10*6/uL (4.20-5.50)
[2022-03-22 21:20] LABS: Appearance Urine CLEAR; Color Urine YELLOW; Glucose Urine UA NEG (NEG); Leukocyte Esterase Urine NEG (NEG); Nitrite Urine NEG (NEG); UACC Culture Trigger NO; UPreg QC Valid YES; Urine Blood NEG (NEG); Urine Ketones NEG (NEG); Urine Pregnancy POSITIVE (NEGATIVE); Urine Protein 1+ MG/DL (NEG-TRACE)
[2022-03-22 21:30] LABS: Alanine Aminotransferase 11 U/L (0-31); Albumin Level 4.2 g/dL (3.5-5.0); Alkaline Phosphatase 94 U/L (39-117); Anion Gap 10 (12-20); Aspartate Amino Transferase 15 U/L (5-31); Bilirubin Total 0.2 mg/dL (0.0-1.0); Blood Urea Nitrogen 10 mg/dL (9-16); Carbon Dioxide 26 mmol/L (22-29); Chloride 105 mmol/L (96-108); Creatinine Clr Calc Pharmacy 88.8; Estimated Glomerular Filt Rate > 60; Glucose Random 87 mg/dL (60-115); Potassium 4.1 mmol/L (3.3-5.1); Sodium 137 mmol/L (135-145); Total Protein 7.3 g/dL (6.5-8.0)
[2022-03-22 21:36] LABS: HCG Quantitative 202 mIU/mL
[2022-03-22 21:48] LABS: Bacteria Urine 1+ /LPF; Mucus Urine 4+ /LPF; RBC Urine 0-2 /HPF (0); Squamous Epithelial Cell Urine 2+ /LPF; WBC Urine 0-2 /HPF (0-4)
--- NOTE | 2022-03-22 23:47 | ED_ITS ---
HPI - Female Genitourinary General Chief complaint: Abdominal Pain <Mouna Roberts NP - Last Filed: 03/23/22 02:04> Stated complaint: abd pain, , spotting <Mouna Roberts NP - Last Filed: 03/23/22 02:04> Time Seen by Provider: 03/23/22 02:29 <Mouna Roberts NP - Last Filed: 03/23/22 02:04> Source: patient <Mouna Roberts NP - Last Filed: 03/23/22 02:04> Mode of arrival: ambulatory <Mouna Roberts NP - Last Filed: 03/23/22 02:04> Limitations: no limitations <Mouna Roberts NP - Last Filed: 03/23/22 02:04> History of Present Illness HPI Narrative: 21-year-old female presents with abdominal pain and cramping, right-sided adnexal tenderness, and vaginal bleeding while . <Mouna Roberts NP - Last Filed: 03/23/22 02:04> MD elicited complaint: vaginal bleeding, pelvic pain and possible miscarriage <Mouna Roberts NP - Last Filed: 03/23/22 02:04> Pertinent past history: prior miscarriages <Mouna Roberts NP - Last Filed: 03/23/22 02:04> Onset (ago): day(s) (2) <Mouna Roberts NP - Last Filed: 03/23/22 02:04> Location of symptoms: suprapubic and other (Right adnexa) <Mouna Roberts NP - Last Filed: 03/23/22 02:04> Severity: moderate <Mouna Roberts NP - Last Filed: 03/23/22 02:04> Severity scale (1-10): 5 <Mouna Roberts NP - Last Filed: 03/23/22 02:04> Quality of pain: cramping and aching <Mouna Roberts NP - Last Filed: 03/23/22 02:04> Consistency: intermittent <Mouna Roberts NP - Last Filed: 03/23/22 02:04> Vaginal discharge: none <Mouna Roberts NP - Last Filed: 03/23/22 02:04> Vaginal bleeding: scant <Mouna Roberts NP - Last Filed: 03/23/22 02:04> Exacerbating factors: movement and palpation <Mouna Roberts NP - Last Filed: 03/23/22 02:04> Relieving factors: none <Mouna Roberts NP - Last Filed: 03/23/22 02:04> Associated symptoms: abdominal pain <Mouna Roberts NP - Last Filed: 03/23/22 02:04> Treatment prior to arrival: none <Mouna Roberts NP - Last Filed: 03/23/22 02:04> Sexual activity: Yes <Mouna Roberts NP - Last Filed: 03/23/22 02:04> Patient : Yes <Mouna Roberts NP - Last Filed: 03/23/22 02:04> Possible : at home test positive <Mouna Roberts NP - Last Filed: 03/23/22 02:04> Related Data : 2 <Mouna Roberts NP - Last Filed: 03/23/22 02:04> Para: 0 <Mouna Roberts NP - Last Filed: 03/23/22 02:04> Total number of abortions (spontaneous and elective): 1 <Mouna Roberts NP - Last Filed: 03/23/22 02:04> Home medications: Previous Rx's Medication Instructions Recorded ibuprofen 600 mg tablet 600 mg PO Q6H PRN #20 tab 07/25/21 <Mouna Roberts NP - Last Filed: 03/23/22 02:04> Allergies/Adverse reactions: Allergies Allergy/AdvReac Type Severity Reaction Status Date / Time Latex Allergy Unknown Hives Uncoded 02/21/22 14:20 <Mouna Roberts NP - Last Filed: 03/23/22 02:04> Review of Systems Review of Systems: Constitutional: No Fever, No Chills ENT/Mouth: No Ear Pain, No Hoarseness, No sore throat Eyes: No Eye Pain, No Swelling, No Redness, No Foreign Body Cardiovascular: No Chest Pain, No SOB Respiratory: No Cough, No Dyspnea Gastrointestinal: No Nausea, No Vomiting, No Diarrhea, No abdominal Pain Genitourinary: Positive , Positive vaginal spotting, positive right adnexal pain No Dysuria, No Hematuria Musculoskeletal: No joint pain, No Myalgias, No Joint Swelling Skin: No Skin lacerations, No rash Neuro: No Weakness, No Numbness, No Paresthesias, No Loss of Consciousness, No Dizziness, No Headache Psych: No Anxiety/Panic, No Depression Heme/Lymph: no easy bruising, no Lymphadenopathy Endocrine: No Polyuria, No Polydipsia <Mouna Roberts NP - Last Filed: 03/23/22 02:04> Yes all other systems are reviewed and are negative <Mouna Roberts NP - Last Filed: 03/23/22 02:04> [facility] Past Medical History Attestation statement: The following information was validated with the patient. <Mouna Roberts NP - Last Filed: 03/23/22 02:04> Source: old records reviewed <Mouna Roberts NP - Last Filed: 03/23/22 02:04> Medical History: Medical History Asthma <Mouna Roberts NP - Last Filed: 03/23/22 02:04> : 2 <Mouna Roberts NP - Last Filed: 03/23/22 02:04> Para: 0 <Mouna Roberts NP - Last Filed: 03/23/22 02:04> Total number of abortions (spontaneous and elective): 1 <Mouna Roberts NP - Last Filed: 03/23/22 02:04> Social History Social History: Social History Alcohol intake: former Patient Tobacco Use Status: Never used Tobacco Advance Directives: No Advance Directives Information Provided: Yes Patient : Yes Gender identity: Female <Mouna Roberts NP - Last Filed: 03/23/22 02:04> Physical Exam Vital Signs: Vital Signs: Last Vital Signs Temp 98.9 F 03/22/22 20:45 Pulse 74 03/22/22 20:45 Resp 16 03/22/22 20:45 BP 126/55 L 03/22/22 20:45 Pulse Ox 100 03/22/22 20:45 BMI result Body Mass Index 30.2 <Mouna Roberts NP - Last Filed: 03/23/22 02:04> Vital Signs: Last Vital Signs Temp 98.9 F 03/22/22 20:45 Pulse 74 03/22/22 20:45 Resp 16 03/22/22 20:45 BP 126/55 L 03/22/22 20:45 Pulse Ox 100 03/22/22 20:45 BMI result Body Mass Index 30.2 <Samra Fountain MD - Last Filed: 03/23/22 03:00> Appearance: Alert. Oriented X3. No acute distress. Eyes: Pupils equal, round and reactive to light. ENT: Pharynx normal. Neck: Normal inspection. Neck supple. CVS: Normal heart rate and rhythm. Pulses normal. Respiratory: No respiratory distress. Breath sounds normal. Abdomen: Soft and positive suprapubic and right adnexal pain Skin: Skin warm and dry. Normal skin color. Normal skin turgor. Extremities: No lower extremity edema. Gait well balanced well coordinated. Neuro: No motor deficit. No sensory deficit. Cranial nerves 2-12 intact. <Mouna Roberts NP - Last Filed: 03/23/22 02:04> Course Course Course Narrative: 21-year-old female presents with right adnexal pain, abnormal vaginal bleeding and . Labs drawn while she was in the emergency department waiting room. HCG is 200. Physical exam indicative of right adnexal pain. She does have history of a miscarriage and is concerned about ectopic . [facility] order pelvic ultrasound at this time 02:00 pelvic ultrasound pending. Sign-out to Dr. Fountain. <Mouna Roberts NP - Last Filed: 03/23/22 02:04> Reevaluation(s) Reevaluation #1: I received sign-out from nurse practitioner Alejandra Patient likely has ovarian cysts, no gestation identified. I also discussed the patient with Dr. Syed. Patient needs an H&H level on March 25 and March 27, patient will be seen in the office on March 27. I gave clear indications to the patient when to return to the emergency room, for ectopic signs. Palpation lab forms provided to the patient <Samra Fountain MD - Last Filed: 03/23/22 03:00> MDM - Female Genitourinary MDM Narrative Medical decision making narrative: Ectopic , spontaneous <Mouna Roberts NP - Last Filed: 03/23/22 02:04> Medical Records Attestation: I reviewed the patient's medical records. <Mouna Roberts NP - Last Filed: 03/23/22 02:04> Lab Data Attestation: I reviewed the patient's lab results. <Mouna Roberts NP - Last Filed: 03/23/22 02:04> Result diagrams: : 03/22/22 21:09 03/22/22 21:10 <Mouna Roberts NP - Last Filed: 03/23/22 02:04> Labs: Lab Results 03/22/22 03/22/22 03/22/22 Range/Units 21:09 21:10 21:10 WBC 12.0 H (4.8-10.8) X10*3/uL RBC 4.47 (4.20-5.50) X10*6/uL Hgb 12.2 (12.0-16.0) g/dl Hct 36.5 L (37.0-47.0) % MCV 81.7 (80.0-98.0) fL MCH 27.3 (27.0-33.0) pg MCHC 33.4 (31.0-35.0) g/dl RDW 13.0 (11.0-16.0) % Plt Count 351 (160-400) X10*3/uL MPV 9.3 L (9.4-12.3) fL Immature Gran % (Auto) 0.7 H (0.0-0.4) % Neut % (Auto) 62.6 (45-73) % Lymph % (Auto) 25.7 (20-40) % [place] % (Auto) 7.6 (2-11) % Eos % (Auto) 2.7 (0-4) % Baso % (Auto) 0.7 (0-2) % Lymph # (Auto) 3.1 (1.2-4.9) X10*3/uL [place] # (Auto) 0.9 (0.1-1.2) X10*3/uL Eos # (Auto) 0.3 (0.0-0.4) X10*3/uL Baso # (Auto) 0.1 (0.0-0.2) X10*3/uL Abs Immat Gran (auto) 0.08 H (0.00-0.03) X10*3/uL Absolute Neuts (auto) 7.6 (2.0-8.3) x10*3/uL Absolute Nucleated RBC 0.000 (0.0-0.012) X10*3/uL Nucleated RBC % (auto) 0.0 (0.0-0.2) /100WBC Sodium 137 (135-145) mmol/L Potassium 4.1 (3.3-5.1) mmol/L Chloride 105 (96-108) mmol/L Carbon Dioxide 26 (22-29) mmol/L Anion Gap 10 L (12-20) BUN 10 (9-16) mg/dL Creatinine 0.84 (0.5-1.4) mg/dL Estim Creat Clear Calc 88.8 Estimated GFR > 60 Random Glucose 87 (60-115) mg/dL Calcium 9.0 (8.4-10.2) mg/dL Total Bilirubin 0.2 (0.0-1.0) mg/dL AST 15 (5-31) U/L ALT 11 (0-31) U/L Alkaline Phosphatase 94 (39-117) U/L Total Protein 7.3 (6.5-8.0) g/dL Albumin 4.2 (3.5-5.0) g/dL Beta HCG, Quant 202 mIU/mL Urine Color Urine Appearance Urine pH (5.0-8.0) Ur Specific [place] (1.005-1.025) Urine Protein (NEG-TRACE) MG/DL Urine Glucose (UA) (NEG) MG/DL Urine Ketones (NEG) MG/DL Urine Blood (NEG) Urine Nitrite (NEG) Ur Leukocyte Esterase (NEG) Urine RBC (0) /HPF Urine WBC (0-4) /HPF Ur Squamous Epith Cells /LPF Urine Bacteria /LPF Urine Mucus /LPF Urine Test POSITIVE H (NEGATIVE) 03/22/22 Range/Units 21:10 WBC (4.8-10.8) X10*3/uL RBC (4.20-5.50) X10*6/uL Hgb (12.0-16.0) g/dl Hct (37.0-47.0) % MCV (80.0-98.0) fL MCH (27.0-33.0) pg MCHC (31.0-35.0) g/dl RDW (11.0-16.0) % Plt Count (160-400) X10*3/uL MPV (9.4-12.3) fL Immature Gran % (Auto) (0.0-0.4) % Neut % (Auto) (45-73) % Lymph % (Auto) (20-40) % [place] % (Auto) (2-11) % Eos % (Auto) (0-4) % Baso % (Auto) (0-2) % Lymph # (Auto) (1.2-4.9) X10*3/uL [place] # (Auto) (0.1-1.2) X10*3/uL Eos # (Auto) (0.0-0.4) X10*3/uL Baso # (Auto) (0.0-0.2) X10*3/uL Abs Immat Gran (auto) (0.00-0.03) X10*3/uL Absolute Neuts (auto) (2.0-8.3) x10*3/uL Absolute Nucleated RBC (0.0-0.012) X10*3/uL Nucleated RBC % (auto) (0.0-0.2) /100WBC Sodium (135-145) mmol/L Potassium (3.3-5.1) mmol/L Chloride (96-108) mmol/L Carbon Dioxide (22-29) mmol/L Anion Gap (12-20) BUN (9-16) mg/dL Creatinine (0.5-1.4) mg/dL Estim Creat Clear Calc Estimated GFR Random Glucose (60-115) mg/dL Calcium (8.4-10.2) mg/dL Total Bilirubin (0.0-1.0) mg/dL AST (5-31) U/L ALT (0-31) U/L Alkaline Phosphatase (39-117) U/L Total Protein (6.5-8.0) g/dL Albumin (3.5-5.0) g/dL Beta HCG, Quant mIU/mL Urine Color YELLOW Urine Appearance CLEAR Urine pH 7.0 (5.0-8.0) Ur Specific [place] 1.010 (1.005-1.025) Urine Protein 1+ H (NEG-TRACE) MG/DL Urine Glucose (UA) NEG (NEG) MG/DL Urine Ketones NEG (NEG) MG/DL Urine Blood NEG (NEG) Urine Nitrite NEG (NEG) Ur Leukocyte Esterase NEG (NEG) Urine RBC 0-2 (0) /HPF Urine WBC 0-2 (0-4) /HPF Ur Squamous Epith Cells 2+ /LPF Urine Bacteria 1+ /LPF Urine Mucus 4+ /LPF Urine Test (NEGATIVE) <Mouna Roberts [employer] - Last Filed: 03/23/22 02:04> Lab Results 03/22/22 03/22/22 03/22/22 Range/Units 21:09 21:10 21:10 WBC 12.0 H (4.8-10.8) X10*3/uL RBC 4.47 (4.20-5.50) X10*6/uL Hgb 12.2 (12.0-16.0) g/dl Hct 36.5 L (37.0-47.0) % MCV 81.7 (80.0-98.0) fL MCH 27.3 (27.0-33.0) pg MCHC 33.4 (31.0-35.0) g/dl RDW 13.0 (11.0-16.0) % Plt Count 351 (160-400) X10*3/uL MPV 9.3 L (9.4-12.3) fL Immature Gran % (Auto) 0.7 H (0.0-0.4) % Neut % (Auto) 62.6 (45-73) % Lymph % (Auto) 25.7 (20-40) % [place] % (Auto) 7.6 (2-11) % Eos % (Auto) 2.7 (0-4) % Baso % (Auto) 0.7 (0-2) % Lymph # (Auto) 3.1 (1.2-4.9) X10*3/uL [place] # (Auto) 0.9 (0.1-1.2) X10*3/uL Eos # (Auto) 0.3 (0.0-0.4) X10*3/uL Baso # (Auto) 0.1 (0.0-0.2) X10*3/uL Abs Immat Gran (auto) 0.08 H (0.00-0.03) X10*3/uL Absolute Neuts (auto) 7.6 (2.0-8.3) x10*3/uL Absolute Nucleated RBC 0.000 (0.0-0.012) X10*3/uL Nucleated RBC % (auto) 0.0 (0.0-0.2) /100WBC Sodium 137 (135-145) mmol/L Potassium 4.1 (3.3-5.1) mmol/L Chloride 105 (96-108) mmol/L Carbon Dioxide 26 (22-29) mmol/L Anion Gap 10 L (12-20) BUN 10 (9-16) mg/dL Creatinine 0.84 (0.5-1.4) mg/dL Estim Creat Clear Calc 88.8 Estimated GFR > 60 Random Glucose 87 (60-115) mg/dL Calcium 9.0 (8.4-10.2) mg/dL Total Bilirubin 0.2 (0.0-1.0) mg/dL AST 15 (5-31) U/L ALT 11 (0-31) U/L Alkaline Phosphatase 94 (39-117) U/L Total Protein 7.3 (6.5-8.0) g/dL Albumin 4.2 (3.5-5.0) g/dL Beta HCG, Quant 202 mIU/mL Urine Color Urine Appearance Urine pH (5.0-8.0) Ur Specific [place] (1.005-1.025) Urine Protein (NEG-TRACE) MG/DL Urine Glucose (UA) (NEG) MG/DL Urine Ketones (NEG) MG/DL Urine Blood (NEG) Urine Nitrite (NEG) Ur Leukocyte Esterase (NEG) Urine RBC (0) /HPF Urine WBC (0-4) /HPF Ur Squamous Epith Cells /LPF Urine Bacteria /LPF Urine Mucus /LPF Urine Test POSITIVE H (NEGATIVE) 03/22/22 Range/Units 21:10 WBC (4.8-10.8) X10*3/uL RBC (4.20-5.50) X10*6/uL Hgb (12.0-16.0) g/dl Hct (37.0-47.0) % MCV (80.0-98.0) fL MCH (27.0-33.0) pg MCHC (31.0-35.0) g/dl RDW (11.0-16.0) % Plt Count (160-400) X10*3/uL MPV (9.4-12.3) fL Immature Gran % (Auto) (0.0-0.4) % Neut % (Auto) (45-73) % Lymph % (Auto) (20-40) % [place] % (Auto) (2-11) % Eos % (Auto) (0-4) % Baso % (Auto) (0-2) % Lymph # (Auto) (1.2-4.9) X10*3/uL [place] # (Auto) (0.1-1.2) X10*3/uL Eos # (Auto) (0.0-0.4) X10*3/uL Baso # (Auto) (0.0-0.2) X10*3/uL Abs Immat Gran (auto) (0.00-0.03) X10*3/uL Absolute Neuts (auto) (2.0-8.3) x10*3/uL Absolute Nucleated RBC (0.0-0.012) X10*3/uL Nucleated RBC % (auto) (0.0-0.2) /100WBC Sodium (135-145) mmol/L Potassium (3.3-5.1) mmol/L Chloride (96-108) mmol/L Carbon Dioxide (22-29) mmol/L Anion Gap (12-20) BUN (9-16) mg/dL Creatinine (0.5-1.4) mg/dL Estim Creat Clear Calc Estimated GFR Random Glucose (60-115) mg/dL Calcium (8.4-10.2) mg/dL Total Bilirubin (0.0-1.0) mg/dL AST (5-31) U/L ALT (0-31) U/L Alkaline Phosphatase (39-117) U/L Total Protein (6.5-8.0) g/dL Albumin (3.5-5.0) g/dL Beta HCG, Quant mIU/mL Urine Color YELLOW Urine Appearance CLEAR Urine pH 7.0 (5.0-8.0) Ur Specific [place] 1.010 (1.005-1.025) Urine Protein 1+ H (NEG-TRACE) MG/DL Urine Glucose (UA) NEG (NEG) MG/DL Urine Ketones NEG (NEG) MG/DL Urine Blood NEG (NEG) Urine Nitrite NEG (NEG) Ur Leukocyte Esterase NEG (NEG) Urine RBC 0-2 (0) /HPF Urine WBC 0-2 (0-4) /HPF Ur Squamous Epith Cells 2+ /LPF Urine Bacteria 1+ /LPF Urine Mucus 4+ /LPF Urine Test (NEGATIVE) <Samra Fountain MD - Last Filed: 03/23/22 03:00> Imaging Data US - abdomen: Radiologist's impression: [place] [id number] Ultrasound Report Signed Patient: Kelli Maxwell MR#: [id number] : 2000 Acct:[id number] Age/Sex: 21 / F ADM Date: 03/22/22 Loc: HO.ED Attending Dr: Ordering Physician: Mouna Roberts NP Date of Service: 03/23/22 Procedure(s): US OB transvaginal Accession Number(s): [id number] cc: Mouna Roberts NP~ EXAMINATION:? US OBSTETRICAL ULTRASOUND CLINICAL INFORMATION:? Right adnexal tenderness. Right-sided tenderness 4 weeks. History of ovarian cyst. No history of surgery. HCG quantitative 03/22/2022 202. COMPARISON:? Pelvic ultrasound 07/25/2021..? LMP: No LMP per patient. TECHNIQUE: Transabdominal and endovaginal grayscale and color Doppler ultrasonography. ? FINDINGS: The uterus measures 9.9 cm x 4.2 cm x 5.2 cm and is present in a retroflexed orientation. No endometrial cavity fluid collections are visualized. The endometrial echo complex measures 10 mm in width. No uterine fibroids are noted. The right ovary measures 3.8 cm x 2.2 cm x 3.5 cm. 2 closely approximated anechoic ovoid regions are present in association with the right ovary each measuring approximately 4 mm in maximum diameter. Color Doppler interrogation demonstrates no peripheral hyperemia. The left ovary measures 2.6 cm x 1.6 cm x 2.2 cm and is normal in appearance. Color Doppler interrogation demonstrates no gross hyperemia of the ovaries. A trace quantity of anechoic fluid is present dependently within the pelvic cul-de-sac. US/US OB transvaginal IMPRESSION: *No gestation is identified. As clinically indicated, consider maintenance of ectopic precautions. *No definitive abnormalities of the ovaries. Two subcentimeter anechoic cysts are noted in association with the right ovary and are most likely to represent physiologic cysts. Findings could represent early sonographic appearance of an ovarian ectopic . However,? no peripheral hyperemia is associated with these findings to more specifically suggest ectopic and statistically these findings are most likely to represent physiologic ovarian cysts. <Samra Fountain MD - Last Filed: 03/23/22 03:00> Discharge Plan Discharge Clinical Impression: Adnexal pain, Vaginal bleeding in patient after first trimester <Mouna Roberts NP - Last Filed: 03/23/22 02:04> Patient Disposition: Home, Self-Care <Mouna Roberts NP - Last Filed: 03/23/22 02:04> Instructions: Threatened Miscarriage (ED) <Mouna Roberts NP - Last Filed: 03/23/22 02:04> Additional Instructions: If you have any signs of severe abdominal pain, severe bleeding, please return immediately to the emergency room. Do not take ibuprofen, only Tylenol for pain. You need to have labs, hCG drawn on March 25 and March 27. You have an appointment with Dr. Syed on March 27. <Mouna Roberts NP - Last Filed: 03/23/22 02:04> Prescriptions: No Action ibuprofen 600 mg tablet 600 mg PO Q6H PRN (Reason: pain) Qty: 20 0RF <Mouna Roberts NP - Last Filed: 03/23/22 02:04> Referrals: Josiah Syed MD [Physician] - 03/27/22 <Mouna Roberts NP - Last Filed: 03/23/22 02:04>
--- NOTE | 2022-03-23 02:57 | PC.NURSE ---
MD at bedside explaining results of U/S and plan of care.
--- NOTE | 2022-03-23 06:26 | PM.GYNCN ---
LEVEL VIAL INSIDE GRINDER - CN: HPI Data of Consult Consult date: 03/23/22 Primary Care Provider: Unknown Physician Consult Narrative Narrative: Late entry note I was consulted by Dr. Fountain at 2: 46 am regarding Kelli Maxwell who is a 21 year old female who presented emergency room with vaginal bleeding and pelvic pain. Abdominal exam reported to be soft, pelvic exam mild right adnexal pain. The following workup was done in the emergency room: H&H 12.2/36.5 by hCG 202, UA within normal, blood type B positive Pelvic ultrasound showed the following: No gestation is identified. As clinically indicated, consider maintenance of ectopic precautions. *No definitive abnormalities of the ovaries. Two subcentimeter anechoic cysts are noted in association with the right ovary and are most likely to represent physiologic cysts. Findings could represent early sonographic appearance of an ovarian ectopic . However,? no peripheral hyperemia is associated with these findings to more specifically suggest ectopic and statistically these findings are most likely to represent physiologic ovarian cysts. cc:: CC: OB PMF Past Medical History Medical History Asthma Social History Social History Alcohol intake: former Patient Tobacco Use Status: Never used Tobacco Advance Directives: No Advance Directives Information Provided: Yes Patient : Yes Gender identity: Female Meds Allergies Allergy/AdvReac Type Severity Reaction Status Date / Time Latex Allergy Unknown Hives Uncoded 02/21/22 14:20 LEVEL VIAL INSIDE GRINDER Physical Exam Vitals Vital signs: Temp Pulse Resp BP Pulse Ox 98.9 F 74 16 126/55 L 100 03/22/22 20:45 03/22/22 20:45 03/22/22 20:45 03/22/22 20:45 03/22/22 20:45 BMI result Body Mass Index 30.2 Additional Comments: Abdominal exam reported by Dr. Fountain to be normal andsoft, pelvic exam no active vaginal bleeding and mild right adnexal pain LEVEL VIAL INSIDE GRINDER - Results Labs CBC & Chem 7: 03/22/22 21:09 03/22/22 21:10 Labs: Short CBC 03/22/22 Range/Units 21:09 WBC 12.0 H (4.8-10.8) X10*3/uL Hgb 12.2 (12.0-16.0) g/dl Hct 36.5 L (37.0-47.0) % Plt Count 351 (160-400) X10*3/uL BMP 03/22/22 21:10 Sodium 137 Potassium 4.1 Chloride 105 Carbon Dioxide 26 BUN 10 Creatinine 0.84 Calcium 9.0 Liver Function 03/22/22 Range/Units 21:10 Total Bilirubin 0.2 (0.0-1.0) mg/dL AST 15 (5-31) U/L ALT 11 (0-31) U/L Alkaline Phosphatase 94 (39-117) U/L Albumin 4.2 (3.5-5.0) g/dL Urine 03/22/22 03/22/22 Range/Units 21:10 21:10 Urine Color YELLOW Urine Appearance CLEAR Urine pH 7.0 (5.0-8.0) Ur Specific [place] 1.010 (1.005-1.025) Urine Protein 1+ H (NEG-TRACE) MG/DL Urine Glucose (UA) NEG (NEG) MG/DL Urine Test POSITIVE H (NEGATIVE) Imaging US - abdomen: Radiologist's impression: ITS Impressions Ultrasound 03/23/22 01:40 IMPRESSION: *No gestation is identified. As clinically indicated, consider maintenance of ectopic precautions. *No definitive abnormalities of the ovaries. Two subcentimeter anechoic cysts are noted in association with the right ovary and are most likely to represent physiologic cysts. Findings could represent early sonographic appearance of an ovarian ectopic . However, no peripheral hyperemia is associated with these findings to more specifically suggest ectopic and statistically these findings are most likely to represent physiologic ovarian cysts. This result was discussed with Dr. Александр MCDONALD by telephone at 03/23/2022 2:29 AM and it was ascertained that the content and urgency of the report was understood at the time of direct communication. Transvaginal US 03/23/22 01:40 IMPRESSION: *No gestation is identified. As clinically indicated, consider maintenance of ectopic precautions. *No definitive abnormalities of the ovaries. Two subcentimeter anechoic cysts are noted in association with the right ovary and are most likely to represent physiologic cysts. Findings could represent early sonographic appearance of an ovarian ectopic . However, no peripheral hyperemia is associated with these findings to more specifically suggest ectopic and statistically these findings are most likely to represent physiologic ovarian cysts. This result was discussed with Dr. Александр MCDONALD by telephone at 03/23/2022 2:29 AM and it was ascertained that the content and urgency of the report was understood at the time of direct communication. Assessment and Plan (1) Vaginal bleeding in patient after first trimester: Status: Acute Recommended to Dr. Fountain the following: Repeat hCG quantitative in 48 hours, on Sunday 03/25 and on Tuesday 03/27 follow-up in the office on 03/27. The following instructions to be given to patient: To come back to emergency room in case of pelvic pain and or vaginal bleeding otherwise follow-up with hCG Q 48 hours and appointment in the office on 03/27. I spent a total of 25 minutes reviewing the chart, documenting in the medical record and communicating with the ER provider
== END 2022-03-23 03:07 | disposition home or self-care (01) ==
PROVIDERS: Internal Medicine; Emergency Provider Emergency Medicine
DX: O46.91 Antepartum hemorrhage, unspecified, first trimester (principal); O99.891 Other specified diseases and conditions complicating pregnancy; N94.89 Other specified conditions associated with female genital organs and menstrual cycle; O09.291 Supervision of pregnancy with other poor reproductive or obstetric history, first trimester; Z3A.00 Weeks of gestation of pregnancy not specified
CPT/HCPCS: 36415; 76801; 76817; 80053; 81001; 81025; 84702; 85025; 99283; 99284

== ENCOUNTER 2022-03-26 11:00 | Outpatient (REF) | payer MEDICAID, SELFPAY ==
[2022-03-26 12:15] LABS: HCG Quantitative 1396 mIU/mL
[2022-03-27 16:46] LABS: CT PCR NOT DETECTED (Not Detect.); NG PCR NOT DETECTED (Not Detect.)
[2022-03-28 12:15] LABS: BV Int Neg Control Negative (Negative); BV Int Pos Control Positive (Positive)
== END 2022-03-26 11:01 | disposition home or self-care (01) ==
LOC: HO.LAB 11:00
PROVIDERS: Advanced Practice Midwife; Absent Provider Obstetrics & Gynecology; PCP Pediatrics; Visit Provider Emergency Medicine
DX: O46.90 Antepartum hemorrhage, unspecified, unspecified trimester (principal); N89.8 Other specified noninflammatory disorders of vagina
CPT/HCPCS: 36415; 84702; 87480; 87491; 87510; 87591; 87660; 99212

== ENCOUNTER 2022-03-28 15:08 | Outpatient (REF) | payer MEDICAID, SELFPAY ==
[2022-03-28 16:21] LABS: HCG Quantitative 3891 mIU/mL
[2022-03-29 01:05] LABS: CT PCR NOT DETECTED (Not Detect.); NG PCR NOT DETECTED (Not Detect.)
== END 2022-03-28 15:09 | disposition home or self-care (01) ==
LOC: HO.LAB 15:08
PROVIDERS: Advanced Practice Midwife; Visit Provider Obstetrics & Gynecology
DX: O46.90 Antepartum hemorrhage, unspecified, unspecified trimester (principal); O26.899 Other specified pregnancy related conditions, unspecified trimester; N89.8 Other specified noninflammatory disorders of vagina
CPT/HCPCS: 36415; 84702; 87491; 87591

== ENCOUNTER 2022-03-29 10:17 | Outpatient (REF) | payer MEDICAID, SELFPAY ==
--- NOTE | ~2022-03-29 | US_ITS ---
EXAMINATION: US OBSTETRICAL ULTRASOUND CLINICAL INFORMATION: Pain. Rule out ectopic . COMPARISON: 03/23/2022. LMP: Unknown. TECHNIQUE: Transabdominal and endovaginal sonographic evaluation of the pelvis. FINDINGS: There is now a single intrauterine gestational sac visualized. Possible early yolk sac seen. Possible early pole with a crown-rump length of 0.25 cm. HR: None recorded CRL (crown rump length): 0.25 cm (5 weeks 6 days +/- 4 days). Mean sac diameter of 0.58 cm yields a gestational age of 5 weeks 1 day MAURA (estimated date of delivery): 11/25/2022 +/- 4 days. MATERNAL ADNEXA: The right maternal ovary measures 3.7 x 2.5 x 2.1 cm. 1.9 cm corpus luteum noted The left maternal ovary measures 2.6 x 1.5 x 2.1 cm. There is no significant maternal adnexal mass. No maternal pelvic ascites. US/US OB pelvic and transvaginal IMPRESSION: 1. Single intrauterine gestation with ultrasound gestational age average of 5 weeks 4 days +/- 4 days. This is very early in appearance with no heart rate seen at this time. Continued follow-up. 2. Estimated date of delivery is 11/25/2022 +/- 4 days. 3. No maternal adnexal mass or pelvic ascites.
== END 2022-03-29 10:18 | disposition home or self-care (01) ==
LOC: HO.US 10:17
PROVIDERS: Visit Provider Obstetrics & Gynecology
DX: Z34.91 Encounter for supervision of normal pregnancy, unspecified, first trimester (principal); Z3A.01 Less than 8 weeks gestation of pregnancy
CPT/HCPCS: 76801; 76817

== ENCOUNTER → 2022-03-30 12:10 | Outpatient (BNVA) | payer MEDICAID, SELFPAY | PROVIDERS: PCP Pediatrics; Visit Provider Obstetrics & Gynecology | DX: O26.851 Spotting complicating pregnancy, first trimester (principal); Z3A.00 Weeks of gestation of pregnancy not specified | CPT/HCPCS: 99212 ==

== ENCOUNTER 2023-08-05 10:08 | Outpatient (REF) | payer MEDICAID, SELFPAY ==
[2023-08-05 15:05] LABS: HCG Quantitative < 2 mIU/mL
== END 2023-08-05 10:09 | disposition home or self-care (01) ==
LOC: HO.CHCLDS 10:08
PROVIDERS: Visit Provider Registered Nurse
DX: Z30.09 Encounter for other general counseling and advice on contraception (principal)
CPT/HCPCS: 36415; 84702

== ENCOUNTER 2024-10-06 14:59 | Outpatient (REF) | payer MEDICAID, SELFPAY ==
[2024-10-06 16:18] LABS: MANUAL DIFF FLAG NO
[2024-10-06 16:25] LABS: Basophils Absolute Auto 0.1 X10*3/uL (0.0-0.2); Basophils Percent Auto 0.6 % (0-2); Eosinophils Absolute Auto 0.3 X10*3/uL (0.0-0.4); Eosinophils Percent Auto 3.2 % (0-4); Hematocrit 38.5 % (37.0-47.0); Hemoglobin 12.6 g/dl (12.0-16.0); Imm Gran Abs Auto 0.09 X10*3/uL (0.00-0.03); Imm Gran Pct Auto 1.1 % (0.0-0.4); Lymphocytes Absolute Auto 2.4 X10*3/uL (1.2-4.9); Lymphocytes Percent Auto 28.5 % (20-40); Mean Corpuscular HGB Conc 32.7 g/dl (31.0-35.0); Mean Corpuscular Hemoglobin 26.9 pg (27.0-33.0); Mean Corpuscular Volume 82.3 fL (80.0-98.0); Mean Platelet Volume 9.8 fL (9.4-12.3); Monocytes Absolute Auto 0.6 X10*3/uL (0.1-1.2); Monocytes Percent Auto 6.7 % (2-11); Neutrophils Absolute Auto 5.1 x10*3/uL (2.0-8.3); Neutrophils Percent Auto 59.9 % (45-73); Platelet Count 351 X10*3/uL (160-400); Red Blood Count 4.68 X10*6/uL (4.20-5.50); Red Cell Distribution Width 12.9 % (11.0-16.0); White Blood Count 8.5 X10*3/uL (4.8-10.8)
[2024-10-06 16:48] LABS: Estimated Average Glucose 114 mg/dL; Hemoglobin A1C 132.4889 umol/L; Hemoglobin A1c % 5.6 % (<6.0); Total Hemoglobin (HGBA1C) 3559.3606 umol/L
[2024-10-06 16:57] LABS: TSH reflex Free T4 0.92 uIU/mL (0.32-4.0)
== END 2024-10-06 15:00 | disposition home or self-care (01) ==
LOC: HO.HHCL 14:59
PROVIDERS: Visit Provider Family Medicine
DX: R53.83 Other fatigue (principal); Z86.32 Personal history of gestational diabetes
CPT/HCPCS: 36415; 83036; 84443; 85025

== ENCOUNTER 2025-02-05 11:26 | Outpatient (REF) | payer MEDICAID, SELFPAY ==
--- OUTSIDE RECORDS SUMMARY | 2025-02-05 13:14 | XMS_ITS | Encounter Summary ---
Author Organization [employer] Address [address] [place] [address] Care Team Providers Care Tool Die Maker Name Role Phone Shanika Contreras MD Primary Care Provider [phone] Encounter Details Date Type Department Care Team (Latest Contact Info) Description 02/05/2025 Travel Social History Tobacco Use Types Packs/Day Years Used Date Smoking Tobacco: Never Passive Smoke Exposure: Never Smokeless Tobacco: Never Depression Answer Date Recorded Patient Health Questionnaire-9 Score 15 03/30/2024 Patient Health Questionnaire-9 Score 15 03/30/2024 Last PHQ-9: Questionnaire Data Not on file 0 03/30/2024 Housing Stability Answer Date Recorded What is your housing situation today? I have jules cobos 12/23/[address] you li ve. Do you have problems with any of the following? None of the above 12/23/2024 Food Insecurity Answer Date Recorded Within the past 12 months, y ou worried that your food would run out before you got money to buy more: Never True 12/23/2024 Within the past 12 months,th e food you bought just didn't last and you didn't have enough money to get more: Never True Transportation Answer Date Recorded In the past 12 months, has l ack of transportation kept you from medical appts, meetings, work or from getting things needed for daily living? Yes, it has kept me from medical appointments or getting medications. 12/23/2024 Utilities Answer Date Recorded In the past 12 months, has t he electric, gas, oil or water company threatened to shut off services in your home? No 12/23/2024 Depression Answer Date Recorded Patient Health Questionnaire-2 Score 4 03/30/2024 Internet Access Answer Date Recorded Internet Access Q1 Yes 12/23/2024 Internet Access Q2 Not on file 12/23/2024 Comments Unknown Sex and Gender Information Value Date Recorded Sex Assigned at Female 09/24/2022 10:29 AM EDT Legal Sex Female 10:29 AM EDT Gender Identity Female 09/24/2022 10:29 AM EDT Sexual Orientation Straight 09/24/2022 10 :29 AM EDT documented as of this encounter Plan of Treatment Upcoming Encounters Date Type Department Care Team (Late st Contact Info) Description 04/08/2025 9:30 AM EDT Procedure Visit [facility] [address] [place] [address] Shanika Contreras MD [address] [place] [address] 04/14/2025 10:30 AM EDT Office Visit [facility] [address] [place] [address] Shanika Contreras MD [address] [place] [address] documented as of this encounter Visit Diagnoses Not on filedocumented in this encounter Additional Health Concerns Assessment Noted Time PHQ-9 Depression Total Score: 15 024 1:20 PM EDT documented as of this encounter Care Teams Tool Die Maker Relationship Specialty Start Date End Date Shanika Contreras MD [address] [place] [address] PCP - General Family Medicine 05/09/21 documented as of this encounter
--- OUTSIDE RECORDS SUMMARY | 2025-02-05 13:14 | XMS_ITS | Clinical Summary ---
Author Organization [employer] Address [address] [facility] [address] [place] [address] Care Team Providers Care Business Architect Name Role Phone Shanika Contreras MD Primary Care Provider [phone] Allergies Active Allergy Reactions Criticality Noted Date Comments Gramineae Pollens 04/30/2023 Latex Hives 04/30/2023 Medications * This document contains information received from the source organization and may not represent a complete record from that organization. albuterol 108 (90 Base) MCG/ACT inhaler Inhale 2 puffs every 4 (four) hours if needed for wheezing or shortness of breath. 18 g 1 04/30/20 23 Active acetaminophen (Tylenol) 500 MG tablet Take 2 tablets (1,000 mg) by mouth every 6 (six) hours if needed for moderate pain or fever for up to 25 doses. 50 tablet 04/30/20 23 Active acetaminophen (Tylenol) 325 MG tablet PLEASE SEE ATTACHED FOR DETAILED DIRECTIONS 11/30/19 23 Active docusate sodium (Colace) 100 MG capsule TAKE 1 CAPSULE BY MOUTH 2 TIMES A DAY FOR 14 DAYS NEEDED FOR CONSTIPATION 11/30/19 23 Active Nexplanon 68 MG contraceptive implant 02/23/20 23 Active famotidine (Pepcid) 20 MG tablet TAKE 1 TABLET TWICE A DAY BY ORAL ROUTE FOR 90 DAYS. 10/25/20 22 Active FREESTYLE LITE test strip TO TEST BLOOD SUGAR 4 TIMES A DAY 10/08/20 22 Active ibuprofen 800 MG tablet Take 800 mg by mouth every 8 (eight) hours. 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 Black or White straight-identified cis-female (pronouns ) with previous documented hx of Depression and Anxiety services including OP Psychotherapy psychopharmacology who presents for Depression and Anxiety During IBH Consult Kelli presenting with depressed mood, loss of interests/pleasure , changes in sleep difficulty staying asleep , change in appetite or weight reduce appetite, psychomotor agitation, trouble concentrating, fatigue/loss of energy, worthlessness , suicide attempt hx 5 years ago and excessive worry/anxiety, difficulty controlling worry, restless/keyed up/On edge, easily fatigued, difficulty concentrating/Mind going blank , irritability, muscle tension, and sleep disturbance difficulty staying asleep ; for a period of 18+ mo, for all symptoms in the context of mother passing, having a baby without her mother support, feeling stuck due to not finishing school, stress relationship with partner. PLAN: New/Additional Services needed Off-site services for Behavioral Health Integration Plan External OP therapy referral Patient Self Plan Patient to utilize skills provided in intervention , Patient to reach out to [facility] team as needed, Patient to engage in OP therapy , and Patient to reach out to [facility] as needed Encounters Date Type Department Care Team Description 02/05/2025 11:00 AM EDT Office Visit [facility] [address] [place] [address] Shanika Contreras MD Upper back pain, chronic (Primary Dx); Macromastia; History of gestational diabetes 02/05/2025 Travel 02/05/2025 Population Health Risk Score [facility] () [address] [address] Provider, Population Health Generic 02/04/2025 Patient Outreach [facility] [address] [place] [address] Shanika Contreras MD Care Coordination (Outreach) 01/15/2025 Patient Outreach [facility] [address] [place] [address] Shanika Contreras MD Care Coordination (Outreach) 12/31/2024 Telephone [facility] [address] [place] [address] Chantal Dominguez RN Care Coordination ([facility] initial assessment) 12/31/2024 Travel 12/30/2024 Patient Outreach [facility] [address] [place] [address] Shanika Contreras MD Care Coordination (Outreach) 12/24/2024 Refill [facility] [address] [place] [phone] Shanika Contreras MD 12/23/2024 Orders Only [facility] [address] [place] [address] Severo Ashton MD 12/23/2024 Patient Outreach [facility] [address] [place] [address] Shanika Contreras MD Care Coordination (Outreach) 12/18/2024 Patient Outreach [facility] [address] [place] [address] Shanika Contreras MD Care Coordination (Outreach) from Last 3 Months Immunizations Name Administration Dates Next Due DTaP 03/03/2002, 1,03/17/2001,01/14 DTaP / IPV 01/14/2001 HPV 9-Valent 09/25/2016,05/24/2016,06/02/2015 HPV, Quadrivalent 06/02/2015 Hep A, ped/adol, 2 dose 07/01/2017,06/07/2016 Hep B, Adolescent or Pediatric 05/23/2001,2000,2000 Hep B, Unspecified 05/23/2001,01/14/2001, 000 Hep B, adult 12/21/2019 HiB, unspecified 12/05/2001, 1,03/17/2001,01/14 IPV 06/28/2005, 1,03/17/2001,01/14 Influenza Whole 09/18/2011,11/01/2006,10/15/2005 Influenza injectable quadriv alent preservative free 09/15/2019 Influenza, IIV3, injectable 08/20/2012 MMR 11/28/2022,06/28/2005,12/05/2001 Meningococcal ACWY, unspecified 03/03/2012 Meningococcal MCV4P ACYW-135 07/01/2017,03/03/20 12 Pneumococcal Conjugate PCV 13 12/05/2001 ,05/23/2001,03/17/2001,01/14 Pneumococcal Conjugate PCV 7 12/05/2001, 05/23/2001,03/17/2001,01/14 Tdap 10/03/2022,03/03/2012 Varicella 09/09/2008,12/05/2001 Social History Tobacco Use Types Packs/Day Years Used Date Smoking Tobacco: Never Passive Smoke Exposure: Never Smokeless Tobacco: Never Tobacco Cessation:Counseling Given: Not Answered Depression Answer Date Recorded Patient Health Questionnaire-9 Score 15 03/30/2024 Patient Health Questionnaire-9 Score 15 03/30/2024 Last PHQ-9: Questionnaire Data Not on file 0 03/30/2024 Housing Stability Answer Date Recorded What is your housing situation today? I have jules chandrika 12/23/[address] you li [...] Orientation Straight 09/24/2022 10 :29 AM EDT Last Filed Vital Signs Vital Sign Reading Time Taken Comments Blood Pressure 116/63 02/05/2025 10:51 AM EDT Pulse 61 02/05/2025 10:51 AM EDT Temperature 36.2 ??C (97.2 ??F) 02/05/2025 10:51 AM E DT Respiratory Rate 20 02/05/2025 10:51 AM EDT Oxygen Saturation 99% 02/05/2025 10:51 AM EDT Inhaled Oxygen Concentration - - Weight 64.9 kg (143 lb) 02/05/2025 10:51 AM EDT Height 149.9 cm (4' 11 ) 02/05/2025 10:51 AM EDT Body Mass Index 28.88 02/05/2025 10:51 AM EDT Plan of Treatment Upcoming Encounters Date Type Department Care Team ([facility] st Contact Info) Description 04/08/2025 9:30 AM EDT Procedure Visit [facility] [address] [place] [address] Shanika Contreras MD [address] [place] [address] 04/14/2025 10:30 AM EDT Office Visit [facility] [address] [place] [address] Shanika Contreras MD [address] [place] [address] Health Maintenance Due Date Last Done Comments HIV Screening 2000 Pneumococcal Vaccine: Pediatrics (0 to 5 Years) and At-Risk Patients (6 to 49) Years) (1 of 1 - PPSV23) 2006 12/05/2001, 12/05/2001, 05/23/2001, Additional history exists Alcohol/Substance Use Screening 2012 Family Planning (PISQ) 2015 Hepatitis C Screening 2018 COVID-19 Vaccine ( season) 2024 Influenza Vaccine (#1) 2024 9, 08/20/2012, 08/20/2012, Additional history exists Depression Monitoring (PHQ-9) 09/30/2024 03/30/2024, 03/30/2024 HPV/Cotest 02/21/2025 Pap Smear 02/21/2025 02/21/2022 Depression Screening 03/30/2025 03/30/2024, 03/30/20 24 SDOH Screening 12/23/2025 12/23/2024 Tobacco Screening 02/05/2026 02/05/2025 DTaP/Tdap/Td Vaccines (7 - Td or Tdap) 10/03/2032 10/03/2022, 03/03/2012, 03/03/2002, Additional history exists Zoster Vaccines (1 of 2) 2050 RSV Patients and Patients Aged 60 years or older (1 - 1-dose 75+ series) 2075 HIB Vaccines Completed 12/05/2001, 04/26, 03/17/2001, Additional history exists IPV Vaccines Completed 06/28/2005, 04/26, 03/17/2001, Additional history exists HPV Vaccines Completed 09/25/2016, 04/27, 06/02/2015, Additional history exists Hepatitis A Vaccines Completed 07/01/2017, 06/07/20 16 Meningococcal Vaccine Completed 07/01/2017 , 03/03/2012, 03/03/2012 Hepatitis B Vaccines Completed 12/21/2019, 05/23/2001, 05/23/2001, Additional history exists RSV under 20 months Aged Out No longe r eligible based on patient's age to complete this topic Rotavirus Vaccines Aged Out No longer eligible based on patient's age to complete this topic Procedures Procedure Name Priority Date/Time Associated Diagnosis Comments HM PAP/HPV Routine 02/21/2022 11:35 AM EDT from Last 3 Months or Most Recently Relevant to Health Maintenance Results * HM PAP/HPV (02/21/2022 11:35 AM EDT) us Historical Provider HEALTH MAINTENANCE Final Result from Last 3 Months or Most Recently Relevant to Health Maintenance Insurance C3 Care Teams Business Architect Relationship Specialty Start Date End Date Shanika Contreras MD [address] [place] [phone] PCP - General Family Medicine 05/09/21
--- OUTSIDE RECORDS SUMMARY | 2025-02-05 13:14 | XMS_ITS | Encounter Summary ---
Author Organization [employer] Address [address] [facility] [address] [place] [address] Care Team Providers Care Clinical Research Manager Name Role Phone Shanika Contreras MD Primary Care Provider [phone] Reason for Visit * Reason Onset Date Comments Care Coordination 12/31/2024 C3CM initial a ssessment Encounter Details Date Type Department Care Team ([facility] Contact Info) Description 12/31/2024 Telephone [facility] [address] [place], [place] [phone] Chantal Dominguez RN [address] [place] [address] Care Coordination (C3 initial assessment) Social History Tobacco Use Types Packs/Day Years Used Date Smoking Tobacco: Never Smokeless Tobacco: Never Depression Answer Date [...] AM EDT documented as of this encounter Miscellaneous Notes * Telephone Encounter - Chantal Dominguez RN - 12/31/2024 2:55 PM EST CM Chantal Dominguez RN placed outbound call to patient for agreed upon time for initial assessment for enrollment into Adult Care Management Program. Patient's name, , and address were verified. Pt states she speaks [place], Bengali and Sri Lankan sign language. Pt states she completed high school and taking some college courses. Pt reports issues with her vision and will need a referral. CM will mail a list of grounds and nursery specialist to pt's address. Pt states she is up to date with her rent and owns [employer]. Pt states she has contacted [employer] assistance for assistance. Per pt, she has enough food tocover her for the month. Pt states she gets $536 a month and is currently working with [employer] to get a job. Pt states she has a form of transportation to her appointments. Pt states she walks as a form of exercise and is concern about her weight. Pt states she has cut down on process sugar and food to help lose the weight. Pt states she takes OTC vitamins and supplements. Pt states she recentlyhad a gall bladder removal surgery. Pt reports incision site is clean and dry and denies any sign of infection. Pt states she has an upcoming appt with the surgeon on 01/06/2025. According to pt, shetakes IBU, Oxycodone and APAP for pain due to surgery and also for wrist pain. Pt c/o back pain dueto breast enlargement and will like an appointment with PCP for a referral for breast reduction surgery. CM scheduled pt an appt for 02/16. Pt states she sees a therapist for depression and anxiety and is coping well at this time. Pt denies any personal goals at this time. CM plan is to assist pt with coordination of care, health education, appointment reminder and connecting pt to resources. Care management program explained and contact information given. Patient verbalizes understanding, and able to repeat back to screen writer. A follow up call will be placed within 10 days, patient agrees with plan. DENNIS Dominguez RN, provided notification to PCP Dr. Contreras of patient's enrollment into C3 Complex Care Program. DENNIS Dominguez RN, completed care plan and sent to HIM to be scanned into the medical record. PCP notified and awaiting review from provider. documented in this encounter Plan of Treatment Upcoming Encounters Date Type Department Care Team ([facility] st Contact Info) Description 04/08/2025 9:30 AM EDT Procedure Visit [facility] [address] [place] [address] Shanika Contreras MD [address] [place] [address] 04/14/2025 10:30 AM EDT Office Visit [facility] [address] [place] [address] Shanika Contreras MD [address] [place] [address] documented as of this encounter Visit Diagnoses Not on filedocumented in this encounter Additional Health Concerns Assessment Noted Time PHQ-9 Depression Total Score: 15 024 1:20 PM EDT documented as of this encounter Care Teams Clinical Research Manager Relationship Specialty Start Date End Date Shanika Contreras MD [address] [place] [id number] PCP - General Family Medicine 05/09/21 documented as of this encounter
--- OUTSIDE RECORDS SUMMARY | 2025-02-05 13:14 | XMS_ITS | Encounter Summary ---
Author Organization [employer] Address [address] [facility] [address] [place] [address] Care Team Providers Care Linen Aide Name Role Phone Shanika Contreras MD Primary Care Provider [phone] Encounter Details Date Type Department Care Team ([facility] st Contact Info) Description 02/05/2025 Population Health Risk Score [facility] (C3) Department [address] [address] Provider, Population Health Generic Social History Tobacco Use Types Packs/Day Years [...] Upcoming Encounters Date Type Department Care Team ([facility] st Contact Info) Description 04/08/2025 9:30 AM EDT Procedure Visit [facility] [address] [place] [address] Shanika Contreras MD [address] [place] [address] 04/14/2025 10:30 AM EDT Office Visit [facility] [address] [place] [address] Shanika Contreras MD [address] [place] [address] documented as of this encounter Visit Diagnoses Not on filedocumented in this encounter Additional Health Concerns Assessment Noted Time PHQ-9 Depression Total Score: 15 024 1:20 PM EDT documented as of this encounter Care Teams Linen Aide Relationship Specialty Start Date End Date Shanika Contreras MD [address] [place] [address] PCP - General Family Medicine 05/09/21 documented as of this encounter
--- OUTSIDE RECORDS SUMMARY | 2025-02-05 13:14 | XMS_ITS | Encounter Summary ---
Author Organization [employer] Address [address] [facility] 7 [place] [address] Care Team Providers Care Aircraft Ordnance Technician Name Role Phone Shanika Contreras MD Primary Care Provider [phone] Reason for Visit * Reason Comments Care Coordination Outreach Encounter Details Date Type Department Care Team (Latest Contact Info) Description 01/15/2025 Patient Outreach [facility] [address] [place], [place] [phone] Shanika Contreras MD [address] [place] [address] Care Coordination (Outreach) Social History Tobacco Use Types Packs/Day Years [...] AM EDT documented as of this encounter Progress Notes * Susi Lorenzo - 01/15/2025 12:28 PM EST CHW Susi Lorenzo placed outbound call to patient to follow up on SDOH needs. Patient's name, and address confirmed. Patient states is doing well. No further questions or concerns. CHW reinforced direct contact information or CM for any additional questions or concerns and extended clinic hours on Mondays and Wednesdays, and Walk-In Urgent Care Located in [facility]. Patient provided with after-hours line for [facility], , which offer night time triage service and option to transfer to public relations supervisor provider if needed. Patient verbalizes understanding, and able to repeat back to newswriter. A follow up call willbe placed within 10 days, patient agrees with plan. documented in this encounter Plan of Treatment Upcoming Encounters Date Type Department Care Team ([facility] st Contact Info) Description 04/08/2025 9:30 AM EDT Procedure Visit [facility] MED & PEDS [address] [place], [place] [phone] Shanika Contreras MD [address] [place], [place] [phone] 04/14/2025 10:30 AM EDT Office Visit [facility] MED & PEDS [address] [place] [address] Shanika Contreras MD [address] [place] [address] documented as of this encounter Visit Diagnoses Not on filedocumented in this encounter Additional Health Concerns Assessment Noted Time PHQ-9 Depression Total Score: 15 024 1:20 PM EDT documented as of this encounter Care Teams Aircraft Ordnance Technician Relationship Specialty Start Date End Date Shanika Contreras MD [address] [place] [address] PCP - General Family Medicine 05/09/21 documented as of this encounter
--- OUTSIDE RECORDS SUMMARY | 2025-02-05 13:14 | XMS_ITS | Encounter Summary ---
Author Organization [employer] Address [address] [place] [address] Care Team Providers Care Manager Of Loss Prevention Operations Name Role Phone Shanika Contreras MD Primary Care Provider [phone] Encounter Details Date Type Department Care Team (Late st Contact Info) Description 12/23/2024 Orders Only [facility] MEDICINE [address] [place] [address] Provider, MD Severo Social History Tobacco Use Types Packs/Day Years Used Date Smoking Tobacco: Never Smokeless Tobacco: Never Depression Answer Date Recorded Patient Health Questionnaire-9 Score 15 03/30/2024 Patient Health Questionnaire-9 Score 15 03/30/2024 Last PHQ-9: Questionnaire Data Not on file 0 03/30/2024 Housing Stability Answer Date Recorded What is your housing situation today? I have julesjovita cobos 12/23/[address] you [...] Upcoming Encounters Date Type Department Care Team ([facility] st Contact Info) Description 04/08/2025 9:30 AM EDT Procedure Visit [facility] MED & PEDS [address] [place] [address] Shanika Contreras MD [address] [place] [address] 04/14/2025 10:30 AM EDT Office Visit [facility] [address] [place] [address] Shanika Contreras MD [address] [place] [address] documented as of this encounter Procedures Procedure Name Priority Date/Time Associated Diagnosis Comments HM PAP/HPV Routine 02/21/2022 11:35 AM EDT documented in this encounter Results * HM PAP/HPV (02/21/2022 11:35 AM EDT) us Historical Provider HEALTH MAINTENANCE Final Result documented in this encounter Visit Diagnoses Not on filedocumented in this encounter Additional Health Concerns Assessment Noted Time PHQ-9 Depression Total Score: 15 024 1:20 PM EDT documented as of this encounter Care Teams Manager Of Loss Prevention Operations Relationship Specialty Start Date End Date Shanika Contreras MD [address] [place] [address] PCP - General Family Medicine 05/09/21 documented as of this encounter
--- OUTSIDE RECORDS SUMMARY | 2025-02-05 13:14 | XMS_ITS | Clinical Summary ---
Author Organization [facility] Address [address] [place] [address] Care Team Providers Care Field Administrator Name Role Phone Unavailable Primary Care Provider Unavailabl e Social History Tobacco Use Types Packs/Day Years Used Date Smoking Tobacco: Never Assessed Comments Unknown Sex and Gender Information Value Date Recorded Sex Assigned at Not on file Legal Sex Female 4:29 AM EST Gender Identity Not on file Sexual Orientation Not on file Plan of Treatment Health Maintenance Due Date Last Done Comments Gonorrhea/Chlamydia Screening 2000 HPV Vaccines (1 - 3-dose series) 2015 DTaP,Tdap,and Td Vaccines (1 - Tdap) 2019 Hepatitis B Vaccines (1 of 3 - 19+ 3-dose series) 2019 Cervical Cancer Screening: P ap Smear 2021 COVID-19 Vaccine ( - 2023-2 5 season) 2024 Influenza Vaccine (#1) 2024 HIB Vaccines Aged Out No longer eligi ble based on patient's age to complete this topic Hepatitis A Vaccines Aged Out No long er eligible based on patient's age to complete this topic IPV Vaccines Aged Out No longer eligi ble based on patient's age to complete this topic MMR Vaccines Aged Out No longer eligi ble based on patient's age to complete this topic Meningococcal ACWY Vaccine Aged Out N o longer eligible based on patient's age to complete this topic Meningococcal B Vacine Aged Out No lo nger eligible based on patient's age to complete this topic Pneumococcal Vaccine: Pediat rics (0 to 5 Years) and At-Risk Patients (6 to 64 Years) Aged Out No longer eligible b ased on patient's age to complete this topic RSV Immunization Patients Un bernard 20 months Aged Out No longer eligible b ased on patient's age to complete this topic Varicella Vaccines Aged Out No longer eligible based on patient's age to complete this topic
--- OUTSIDE RECORDS SUMMARY | 2025-02-05 13:14 | XMS_ITS | Encounter Summary ---
Author Organization [employer] Address [address] [facility] [address] [place] [address] Care Team Providers Care Coordinator Skill Training Program Name Role Phone Shanika Contreras MD Primary Care Provider [phone] Reason for Visit * Reason Comments Care Coordination Outreach Encounter Details Date Type Department Care Team (Latest Contact Info) Description 02/04/[address] [facility] [address] [place], [place] [phone] Shanika Contreras MD [address] [place] [address] Care Coordination (Outreach) Social History Tobacco Use [...] encounter Progress Notes * Susi Lorenzo - 02/04/2025 2:53 PM EDT CHW Susi Lorenzo placed outbound call to patient to follow up on SDOH needs. Patient's name, and address confirmed. Patient states is doing well. No further questions or concerns. CHW reinforced direct contact information or CM for any additional questions or concerns and extended clinic hours on Mondays and Wednesdays, and Walk-In Urgent Care Located in [facility]. Patient provided with after-hours line for [facility], , which offer night time triage service and option to transfer to foreign correspondent provider if needed. Patient verbalizes understanding, and able to repeat back to fiction and nonfiction writer prose. A follow up call willbe placed within 10 days, patient agrees with plan. documented in this encounter Plan of Treatment Upcoming Encounters Date Type Department Care Team ([facility] st Contact Info) Description 04/08/2025 9:30 AM EDT Procedure Visit [facility] MED & PEDS [address] [place] [address] Shanika Contreras MD [address] [place], [place] [phone] 04/14/2025 10:30 AM EDT Office Visit [facility] [address] [place] [address] Shanika Contreras MD [address] [place] [address] documented as of this encounter Visit Diagnoses Not on filedocumented in this encounter Additional Health Concerns Assessment Noted Time PHQ-9 Depression Total Score: 15 024 1:20 PM EDT documented as of this encounter Care Teams Coordinator Skill Training Program Relationship Specialty Start Date End Date Shanika Contreras MD [address] [place] [address] PCP - General Family Medicine 05/09/21 documented as of this encounter
--- OUTSIDE RECORDS SUMMARY | 2025-02-05 13:14 | XMS_ITS | Encounter Summary ---
Author Organization [employer] Address [address] [facility] [address] [place] [address] Care Team Providers Care Supply Chain Director Name Role Phone Shanika Contreras MD Primary Care Provider [phone] Reason for Referral * Consultation (Routine) - Pending Review Specialty Diagnoses / Procedures Referred By Contac t Referred To Contact Physical Therapy Diagnoses Upper back pain, chronic Macromastia Shanika Contreras MD [address] [place] [address] Phone: tel: fax: Referral ID Status Reason Start Date Expiration Date Visits Requested Visits Authorized [id number] Pending Review Specialty Services Required 02/05/2025 02/05/2026 1 1 Scheduling Instructions [facility] please Encounter Details Date Type Department Care Team (Late st Contact Info) Description 02/05/2025 11:00 AM EDT Office Visit [facility]EDS [address] [place] [address] Shanika Contreras MD [address] [place] [address] Upper back pain, chronic (Primary Dx); Macromastia; History of gestational diabetes Social History Tobacco Use Types Packs/Day Years [...] AM EDT documented as of this encounter Last Filed Vital Signs Vital Sign Reading [...] Mass Index 28.88 02/05/2025 10:51 AM EDT documented in this encounter Progress Notes * Shanika Contreras MD - 02/05/2025 11:00 AM EDT Subjective Patient ID: Kelli Maxwell is a 24 y.o. female who presents for No chief complaint on file.. Kelli is a 24 y/o female patient new to me here with complaints of neck and upper back and shoulder pains .she states that she uses triple D size bra .Uses good supportive bras but has no improvement. Would like breast reduction at some point. Has to use grandma style very supportive bras. Has a 2-year-old daughter. Needs a Pap smear and a physical scheduled. Last Pap smear was almost 3 years ag o. Back Pain This is a chronic problem. The problem occurs constantly. The problem is unchanged. The pain is present in the thoracic spine. The quality of the pain is described as aching. The pain does not radiate. The pain is at a severity of 5/10. The pain is moderate. The pain is The same all the time. Exacerbated by: same. Pertinent negatives include no abdominal pain, chest pain, fever, leg pain, numbness, paresis, weakness or weight loss. Risk factors include poor posture. Review of Systems Constitutional: Negative for fever and weight loss. Cardiovascular: Negative for chest pain. Gastrointestinal: Negative for abdominal pain. Musculoskeletal: Positive for back pain. Neurological: Negative for weakness and numbness. Objective BP 116/63 (BP Location: Left arm, Patient Position: Sitting, BP Cuff Size: Adult) Pulse61 Temp 97.2 ??F (36.2 ??C) (Oral) Resp 20 Ht 4' 11 (1.499 m) Wt 143 lb (64.9 kg) SpO2 99% BMI 28.88 kg/m?? Physical Exam Constitutional: General: She is not in acute distress. Appearance: Normal appearance. She is not ill-appearing. HENT: Head: Normocephalic. Right Ear: Tympanic membrane and ear canal normal. Left Ear: Tympanic membrane and ear canal normal. Nose: Nose normal. Mouth/Throat: Mouth: Mucous membranes are moist. Pharynx: No oropharyngeal exudate or posterior oropharyngeal erythema. Eyes: Extraocular Movements: Extraocular movements intact. Conjunctiva/sclera: Conjunctivae normal. Pupils: Pupils are equal, round, and reactive to light. Cardiovascular: Rate and Rhythm: Normal rate and regular rhythm. Pulses: Normal pulses. Heart sounds: Normal heart sounds. Pulmonary: Effort: Pulmonary effort is normal. No respiratory distress. Breath sounds: Normal breath sounds. Abdominal: Palpations: Abdomen is soft. Musculoskeletal: General: Normal range of motion. Cervical back: Normal range of motion. Skin: General: Skin is warm. Capillary Refill: Capillary refill takes less than 2 seconds. Neurological: General: No focal deficit present. Mental Status: She is alert and oriented to person, place, and time. Psychiatric: Mood and Affect: Mood normal. Behavior: Behavior normal. Thought Content: Thought content normal. Judgment: Judgment normal. Assessment/Plan Diagnoses and all orders for this visit: Upper back pain, chronic Comments: Seems to be due to her large size breasts. Referral to PT for eval done so that a plastic surgery evaluation can be covered for possible reduction. Orders: - Referral to Physical Therapy; Future Macromastia Comments: Discussed with patient that referral to PT for upper back treatment needed before plastic surgery referral can be improved. Patient understands. Referral done Orders: - Referral to Physical Therapy; Future History of gestational diabetes Comments: Last A1c 4 months ago was 5.6. Results discussed with patient. Check other labs today prior to nextvisit. Orders: - Basic Metabolic Panel, Fasting; Future - CBC auto differential; Future - TSH W/Reflex to FT4; Future - Vitamin D, 25-Hydroxy, Total, Immunoassay; Future - Hepatic Function Panel; Future documented in this encounter Plan of Treatment Upcoming Encounters Date Type Department Care Team ([facility] st Contact Info) Description 04/08/2025 9:30 AM EDT Procedure Visit [facility] P[facility] [address] [place] [address] Shanika Contreras MD [address] [place] [address] 04/14/2025 10:30 AM EDT Office Visit [facility] [address] [place] [address] Shanika Contreras MD [address] [place] [address] Scheduled Orders Name Type Priority Associated Diagnoses Orde r Schedule Basic Metabolic Panel, Fasting Lab Routine History of gestational diabetes Expected: 02/05/2025 (Approximate), Expires: 02/05/2026 CBC auto differential Lab Routine History of gestational diabetes Expected: 02/05/2025 (Approximate), Expires: 02/05/2026 TSH W/Reflex to FT4 Lab Routine History of gestational diabetes Expected: 02/05/2025 (Approximate), Expires: 02/05/2026 Vitamin D, 25-Hydroxy, Total, Immunoassay Lab Routine History of gestational diabetes Expected: 02/05/2025 (Approximate), Expires: 02/05/2026 Hepatic Function Panel Lab Routine History of gestational diabetes Expected: 02/05/2025 (Approximate), Expires: 02/05/2026 Scheduled Referrals Name Type Priority Associated Diagnoses Orde r Schedule Referral to Physical Therapy Outpatient Referral Routine Upper back pain, chronic Macromastia Expected: 02/05/2025 (Approximate), Expires: 02/05/2026 documented as of this encounter Visit Diagnoses Diagnosis Upper back pain, chronic- Primary Macromastia Hypertrophy of breast History of gestational diabetes Personal history of other genital system and obstetric disorders documented in this encounter Additional Health Concerns Assessment Noted Time PHQ-9 Depression Total Score: 15 05/2 024 1:20 PM EDT documented as of this encounter Care Teams Supply Chain Director Relationship Specialty Start Date End Date Shanika Contreras MD [address] [place] [address] PCP - General Family Medicine 05/09/21 documented as of this encounter
[2025-02-05 14:49] LABS: MANUAL DIFF FLAG NO
[2025-02-05 14:56] LABS: Basophils Absolute Auto 0.1 X10*3/uL (0.0-0.2); Basophils Percent Auto 1.2 % (0-2); Eosinophils Absolute Auto 0.3 X10*3/uL (0.0-0.4); Eosinophils Percent Auto 3.6 % (0-4); Hematocrit 39.1 % (37.0-47.0); Hemoglobin 12.7 g/dl (12.0-16.0); Imm Gran Abs Auto 0.03 X10*3/uL (0.00-0.03); Imm Gran Pct Auto 0.4 % (0.0-0.4); Lymphocytes Absolute Auto 2.5 X10*3/uL (1.2-4.9); Lymphocytes Percent Auto 32.7 % (20-40); Mean Corpuscular HGB Conc 32.5 g/dl (31.0-35.0); Mean Corpuscular Hemoglobin 27.5 pg (27.0-33.0); Mean Corpuscular Volume 84.6 fL (80.0-98.0); Monocytes Absolute Auto 0.4 X10*3/uL (0.1-1.2); Monocytes Percent Auto 5.7 % (2-11); Neutrophils Absolute Auto 4.4 x10*3/uL (2.0-8.3); Neutrophils Percent Auto 56.4 % (45-73); Platelet Count 315 X10*3/uL (160-400); Red Blood Count 4.62 X10*6/uL (4.20-5.50); Red Cell Distribution Width 13.2 % (11.0-16.0); White Blood Count 7.7 X10*3/uL (4.8-10.8)
[2025-02-05 17:32] LABS: Alanine Aminotransferase 18 U/L (0-31); Albumin Level 4.3 g/dL (3.5-5.0); Alkaline Phosphatase 94 U/L (39-117); Anion Gap 13 (12-20); Aspartate Amino Transferase 22 U/L (5-31); Bilirubin Direct < 0.2 mg/dL (0.0-0.5); Bilirubin Total 0.2 mg/dL (0.0-1.0); Blood Urea Nitrogen 9 mg/dL (9-16); Calcium 9.6 mg/dL (8.4-10.2); Carbon Dioxide 25 mmol/L (22-29); Chloride 106 mmol/L (96-108); Estimated Glomerular Filt Rate > 60; Glucose Fasting 79 mg/dL (60-99); Sodium 139 mmol/L (135-145); TSH reflex Free T4 0.56 uIU/mL (0.32-4.0); Total Protein 7.8 g/dL (6.5-8.0); Vitamin D 25-OH Total 28.7 ng/mL (>30)
== END 2025-02-05 11:27 | disposition home or self-care (01) ==
LOC: HO.CHCLDS 11:26
PROVIDERS: Visit Provider Pediatrics
DX: Z86.32 Personal history of gestational diabetes (principal)
CPT/HCPCS: 36415; 80048; 80076; 82306; 84443; 85025